=== PATIENT | female | born 1945 | race Caucasian/White ===

== ENCOUNTER → 2016-07-20 | Outpatient (CLI) | payer BC ==
[~2016-07-20] MED LIST: AZEL0.15 NAE; CHOLCAP5 PO; FLUT0.15 NAE; IBUP1TAB PO; LEVO-14 PO; LORA-741 PO; SIMV40TA4 PO; SNG10 PO
[2016-07-20 15:12] LABS: BASO % 0.4 %; BASO ABS # 0.02 K/uL (0-0.2); COMPLETE YES; EOS % 0.8 %; HEMATOCRIT 41.7 % (37-47); IG% 0.2 %; LYMPH % 40.4 %; LYMPH ABS # 2.11 K/uL (1.2-3.4); MEAN CELL VOLUME 93.5 fL (80-100); MEAN CORPUSCULAR HEMOGLOBIN 31.4 pg (25-34); MEAN CORPUSCULAR HGB CONC 33.6 g/dl (32-36); MEAN PLATELET VOLUME 9.9 fL (7.4-10.4); MONO % 6.1 %; NEUT % 52.1 %; PLATELET COUNT 287 K/uL (130-400); RED BLOOD COUNT 4.46 M/uL (4.2-5.4); WHITE BLOOD COUNT 5.22 K/uL (4.8-10.8)
[2016-07-20 15:20] LABS: PROTHROMBIN TIME (PATIENT) 10.3 SECONDS (9.0-12.0)
== END | disposition home or self-care (01) ==
LOC: C.CPL 14:41
DX: Z87.891 Personal history of nicotine dependence (principal); Z01.818 Encounter for other preprocedural examination

== ENCOUNTER → 2016-07-24 | Day surgery (SDC) | payer BC ==
[2016-07-22 08:07] VITALS: Ht 167.6 cm; Wt 74.5 kg
[~2016-07-24] VITALS: Ht 167.6 cm; Wt 74.5 kg
[~2016-07-24] MED LIST changes: +ATROPINE SULFATE 0.1 MG/ML 5ML SYR IV PRN; +DEXAMETHASONE SOD INJ 4 MG/ML VIAL ONE; +EpHEDrine SULFATE INJ 50 MG/ML AMP IV PRN; +EpINEphrine INJ 1MG/ML AMP 1 MG/ML AMP ONE; +FENTANYL CITRATE INJ 50 MCG/1 ML 2 ML VIAL IV PRN; +FENTANYL CITRATE INJ 50 MCG/1 ML 2 ML VIAL ONE; +LACTATED RINGER'S 1000ML 1,000 ML IV SCH; +LIDOCAINE HCL 2% 2 ML VIAL (20MG/ML) ONE; +MIDAZOLAM HCL 1 MG/ML 2ML VIAL ONE; +ONDANSETRON INJ 2 MG/ML 2 ML VIAL IV PRN; +ONDANSETRON INJ 2 MG/ML 2 ML VIAL ONE; +OXYCODONE HCL 10 MG/0.5 ML UDP PO PRN; +PROPOFOL IV EMULSION 10 MG/ML 20 ML VIAL IV ONE; +SUCCINYLCHOLINE 100MG/5ML SYR IV ONE
--- NOTE | 2016-07-24 09:56 | History & Physical Bridge - [place] ---
H&P Re-Evaluation Bridge Note: I have examined the patient, reviewed the History & Physical and in the interval since the performance of the History & Physical I have noted the following changes of clinical significance: No changes noted
--- NOTE | 2016-07-24 10:43 | [facility] Operative Report ---
Operative Report Operative Date Jul 24, 2016. 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 Cain Venetian Blind Installer Surgeon(s) None Estimated Blood Loss 10 mL Findings 1. PROMINENT BASE OF TONGUE LYMPHOID TISSUE AND PROMINENT MUCOSA OF THE RIGHT PYRIFORM SINUS Specimens A: Right pyriform sinus mucosa B: Right base of tongue I attest to the content of the Intraoperative Record and any orders documented therein. Any exceptions are noted below.
--- NOTE | 2016-07-24 10:45 | Discharge Instructions ---
Discharge Instructions Admission Reason for Admission: Neoplasm Of Uncertain Behavior Base Of Tongue, Drew Discharge Discharge Diagnosis / Problem: SAME Discharge Goals Goal(s): Improve function, Diagnostic testing Activity Recommendations Activity Limitations: as noted below NO DRIVING WHILE ON OXYCODONE . Current Hospital Diet Patient's current hospital diet: Discharge Diet Recommended Diet: Regular Diet Procedures Procedures Performed: Direct Laryngoscopy With Biopsies Pending Studies Studies pending at discharge: no Medical Emergencies . Who to Call and When: Medical Emergencies: If at any time you feel your situation is an emergency, please call 911 immediately. . Non-Emergent Contact Non-Emergency issues call your: Surgeon . . "Provider Documentation" section prepared by Edin Cain. VTE Core Measure Inpt VTE Proph given/why not?: SCD's
[2016-07-24 11:33] VITALS: TEMP 36.5
--- NOTE | 2016-07-24 11:59 | OPERATIVE REPORT ---
DATE OF OPERATION: 07/24/2016 PREOPERATIVE DIAGNOSIS: 1. Right true vocal fold paralysis. 2. Prominence of the right base of tongue and piriform sinus. 3. Direct laryngoscopy with biopsy. POSTOPERATIVE DIAGNOSIS: 1. Right true vocal fold paralysis. 2. Prominence of the right base of tongue and piriform sinus. 3. Direct laryngoscopy with biopsy. PROCEDURE: Direct laryngoscopy with biopsies SURGEON: Dr. Cain. ANESTHESIA: General endotracheal. ESTIMATED BLOOD LOSS: 10 mL. FINDINGS: 1. Prominent lymphoid tissue involving the right base of tongue. 2. Prominent mucosa involving the right pyriform sinus and the medial wall. SPECIMENS: Right base of tongue and right pyriform sinus mucosa for permanent pathological assessment. COMPLICATIONS: None. INDICATIONS FOR THE PROCEDURE: The patient is a 71-year-old female with a history of right vocal cord paralysis who had a CT scan of the neck in [address] Jorge De La Torre. This revealed some prominence of the right base of tongue, but a direct laryngoscopy was not performed because her indirect laryngoscopy in the office was somewhat unrevealing. On my laryngoscopy there was prominence of the right base of tongue and to be thorough I ordered an MRI of the neck with and without contrast to further look at the base of the tongue. This showed prominence of the right base of tongue as well as the pyriform sinus and due to her right vocal cord paralysis and the chance that there is an indolent malignancy I recommended direct laryngoscopy with biopsies. She presents the above-mentioned procedure on an outpatient elective basis. OPERATION AND FINDINGS: DETAILS OF PROCEDURE: After informed consent had been obtained from the patient, the patient was wheeled to the operating room and placed on the operating table in supine position. Monitors were placed after induction of general endotracheal anesthesia. The table was turned 90 degrees and the patient was placed in sniffing position. A tooth guard was placed over the maxillary dentition. The operating laryngoscope was carefully inserted and used to inspect the oral cavity, oropharynx, hypopharynx, and larynx. Intraoperative findings were prominent tissue involving the right base of tongue as well as the medial wall and the piriform sinus. Cup forceps were used to take biopsies of the right pyriform sinus mucosa as well as a right base of tongue tissue. These were sent off for permanent pathological assessment. Topical 1:1000 epinephrine pledgets were placed over the biopsy sites for hemostatic effect. After 1 minute these were removed. The oropharynx and oral cavity were then suctioned. The operating microscope was then removed as well as the maxillary tooth guard. An orogastric tube was placed and the stomach was suctioned free of air and stomach contents. This marked the end of the case. The patient tolerated the procedure well and there were no apparent complications. The patient was extubated and transferred to recovery room in stable condition. I attest to the content of the Intraoperative Record and any orders documented therein. Any exceptions are noted below. MTDD
[2016-07-24 12:02] VITALS: BP 143/87; PULSE 67; O2SAT 95
--- NOTE | 2016-07-24 12:41 | Anesthesia Progress Nt - [facility] ---
Anesthesia Post Op Note Date & Time Jul 24, 2016 at 12:41 Vital Signs Pain Intensity: 0 Vital Signs Past 12 Hours Date Time Temp Pulse Resp B/P Pulse Ox O2 Delivery O2 Flow Rate FiO2 07/24/16 12:02 67 16 143/87 95 Room Air 07/24/16 11:33 36.5 64 16 153/80 95 Room Air 07/24/16 11:29 137/80 07/24/16 11:27 65 13 07/24/16 11:27 66 13 95 07/24/16 11:23 149/77 07/24/16 11:22 70 15 96 07/24/16 11:22 69 15 07/24/16 11:21 66 10 96 07/24/16 11:21 66 10 07/24/16 11:20 36.9 95 Room Air 07/24/16 11:18 144/72 07/24/16 11:16 70 15 96 07/24/16 11:16 70 15 07/24/16 11:14 142/95 07/24/16 11:11 71 14 07/24/16 11:11 71 14 94 07/24/16 11:10 71 16 07/24/16 11:10 70 16 95 07/24/16 11:08 143/73 07/24/16 11:05 70 18 07/24/16 11:05 70 18 100 07/24/16 11:03 144/81 07/24/16 11:00 71 19 07/24/16 11:00 70 19 99 07/24/16 10:58 143/87 07/24/16 10:56 36.8 74 16 144/90 99 Humidified Oxygen 6 Mask 07/24/16 10:55 74 10 100 07/24/16 10:55 76 10 07/24/16 09:05 37.0 70 20 156/91 96 Room Air Notes Mental Status: alert / awake / arousable, participated in evaluation Pt Amnestic to Procedure: Yes Nausea / Vomiting: adequately controlled Pain: adequately controlled Airway Patency, RR, SpO2: stable & adequate BP & HR: stable & adequate Hydration State: stable & adequate Anesthetic Complications: no major complications apparent
== END | disposition home or self-care (01) ==
LOC: X.SURG 08:55
DX: J38.00 Paralysis of vocal cords and larynx, unspecified (principal); K14.8 Other diseases of tongue; J34.89 Other specified disorders of nose and nasal sinuses; F41.9 Anxiety disorder, unspecified; J32.9 Chronic sinusitis, unspecified; K57.30 Diverticulosis of large intestine without perforation or abscess without bleeding; E78.5 Hyperlipidemia, unspecified; J38.7 Other diseases of larynx; M85.80 Other specified disorders of bone density and structure, unspecified site; Z98.890 Other specified postprocedural states; J38.01 Paralysis of vocal cords and larynx, unilateral

== ENCOUNTER → 2016-08-17 | Outpatient (CLI) | payer BC ==
[~2016-08-17] MED LIST changes: -ATROPINE SULFATE 0.1 MG/ML 5ML SYR IV PRN; -DEXAMETHASONE SOD INJ 4 MG/ML VIAL ONE; -EpHEDrine SULFATE INJ 50 MG/ML AMP IV PRN; -EpINEphrine INJ 1MG/ML AMP 1 MG/ML AMP ONE; -FENTANYL CITRATE INJ 50 MCG/1 ML 2 ML VIAL IV PRN; -FENTANYL CITRATE INJ 50 MCG/1 ML 2 ML VIAL ONE; -IBUP1TAB PO; -LACTATED RINGER'S 1000ML 1,000 ML IV SCH; -LIDOCAINE HCL 2% 2 ML VIAL (20MG/ML) ONE; -MIDAZOLAM HCL 1 MG/ML 2ML VIAL ONE; -ONDANSETRON INJ 2 MG/ML 2 ML VIAL IV PRN; -ONDANSETRON INJ 2 MG/ML 2 ML VIAL ONE; -OXYCODONE HCL 10 MG/0.5 ML UDP PO PRN; -PROPOFOL IV EMULSION 10 MG/ML 20 ML VIAL IV ONE; -SUCCINYLCHOLINE 100MG/5ML SYR IV ONE
== END | disposition home or self-care (01) ==
LOC: C.MAMM 10:18
PROVIDERS: ATTEND Family Medicine
DX: M81.0 Age-related osteoporosis without current pathological fracture (principal)

== ENCOUNTER → 2016-08-27 | Outpatient (CLI) | payer BC ==
[~2016-08-27] MED LIST changes: +GADAVIST IV PRN
--- NOTE | 2016-08-27 10:36 | DIAGNOSTIC IMAGING REPORT ---
CERVICAL SPINE MRI WITH AND WITHOUT CONTRAST HISTORY: ABNORMAL Mri, syringomyelia TECHNIQUE: Multiplanar multisequence MRI of the cervical spine was performed both before and after the use of intravenous contrast. COMPARISON STUDY: Neck MRI 06/26/2016. FINDINGS: There is again noted syringohydromyelia throughout the cervical spine. This also extends into the visualized thoracic spine. This measures up to 6 x 4 mm at the C4-T1 levels. No abnormal enhancement. There are no intrinsic cord lesions identified. Asymmetry/flattening of the right vocal cord suggestive of paralysis. Alignment and curvature is cervical spine is intact. Prevertebral soft tissues are within normal limits. The cerebellar tonsils are positioned 2 mm below the level the foramen magnum. However, there is no mass effect along the brainstem. Mild disc space narrowing at C4-C5. Moderate disc space narrowing at C5-C6 and C6-C7. C2-C3: No significant central canal or neural foraminal narrowing. C3-C4: No significant central canal or neural foraminal narrowing. C4-C5: Small broad-based posterior disc osteophyte complex which abuts but does not deform the anterior cord. There is mild left-sided neural foraminal narrowing. C5-C6: Small broad-based posterior disc osteophyte complex which results in partial effacement of the anterior thecal sac without cord deformity. There is mild right and moderate left neural foraminal narrowing. C6-C7: Small broad-based posterior disc osteophyte complex without significant central canal or neural foraminal narrowing. C7-T1: No significant central canal or neural foraminal narrowing. IMPRESSION: 1. 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 No intrinsic cord lesions identified. 2. Degenerative changes as described above. 3. Mild cerebellar tonsillar to be a without evidence for a Chiari malformation. There is no mass effect along the brainstem . 4. Asymmetry/flattening of the right vocal cord suggestive of paralysis. Direct visualization is recommended for confirmation. Electronically signed by: Octavio Villasenor M.D. 08/27/2016 10:35 AM Dictated Date/Time: 08/27/2016 10:25 AM
--- NOTE | 2016-08-27 10:51 | DIAGNOSTIC IMAGING REPORT ---
MRI THORACIC SPINE COMBO CLINICAL HISTORY: Syringomyelia. COMPARISON STUDY: Chest CT dated 08/15/2015. TECHNIQUE: MRI of the thoracic spine is performed utilizing various T1 and T2-weighted sequences in the axial and sagittal planes. Contrast-enhanced sequences are acquired following the IV administration of 7 cc of Gadavist. The examination is degraded by motion artifact. FINDINGS: Vertebral body height and alignment are maintained throughout the thoracic spine. Marrow signal intensity is slightly heterogeneous. No destructive bony lesion is seen. Mild hyperkyphosis is observed. There is mild degenerative disc desiccation and loss of height seen throughout the thoracic spine. There is no large disc herniation or acquired compromise of the central canal. Minimal disc bulge is noted at T9-T10. No significant neural foraminal stenosis is identified throughout the thoracic region. The spinous processes appear intact. There is mild diffuse thinning of the thoracic spinal cord. There is syringomyelia seen extending the length of the cord. This measures up to 3 mm in diameter and extends inferiorly to the level of T10-T11. No mass or abnormal enhancement is seen on the postcontrast images. The conus medullaris terminates at the level of L1. The paraspinous soft tissues are normal as visualized. The lungs are grossly clear but not well evaluated by MRI. Renal cysts are partially imaged. IMPRESSION: 1. Findings are consistent with diffuse atrophy of the thoracic spinal cord with syringomyelia which extends from the cervical region to the T10-T11 interspace. 2. There is no evidence of spinal cord mass or abnormal enhancement on the postcontrast images. 3. Minimal degenerative change as above. There is no acquired compromise of the central canal. Dictated: 08/27/2016 9:54 AM Transcribed: 08/27/2016 10:50 AM [facility] Electronically signed by: Jesus Rodriguez M.D. 08/27/2016 11:02 AM Dictated Date/Time: 08/27/2016 9:54 AM
== END | disposition home or self-care (01) ==
LOC: C.MRIBC 07:45
PROVIDERS: ATTEND Psychiatry & Neurology Neurology
DX: G95.0 Syringomyelia and syringobulbia (principal); R93.8 Abnormal findings on diagnostic imaging of other specified body structures

== ENCOUNTER → 2016-11-06 | Outpatient (CLI) | payer BC ==
[~2016-11-06] MED LIST changes: -GADAVIST IV PRN
--- NOTE | 2016-11-09 12:26 | MAMMOGRAPHY REPORT ---
BILATERAL DIGITAL SCREENING MAMMOGRAM WITH CAD: 11/06/2016 CLINICAL HISTORY: Routine screening. Patient has no complaints. TECHNIQUE: Current study was also evaluated with a Computer Aided Detection (CAD) system. Bilatera l CC and MLO views were obtained. COMPARISON: Comparison is made to exams dated: 11/04/2015 mammogram, 11/01/2014 mammogram, 10/31/2013 mammogram, 10/27/2012 mammogram, 10/27/2011 mammogram, and 10/21/2010 mammogram - [facility]. BREAST COMPOSITION: The tissue of both breasts is heterogeneously dense, which may obscure small ma sses. FINDINGS: No suspicious masses, calcifications, or areas of architectural distortion are noted in e ither breast. There has been no significant interval change compared to prior exams. Scattered bilat eral benign-appearing calcifications are not significantly changed. A linear scar marker denotes a scar on the left upper outer breast. IMPRESSION: ACR BI-RADS CATEGORY 2: BENIGN There is no mammographic evidence of malignancy. A 1 year screening mammogram is recommended. The p atient will receive written notification of the results. Approximately 10% of breast cancers are not detected with mammography. A negative mammographic repor t should not delay biopsy if a clinically suggestive mass is present. Elaine Barr M.D. ah/:11/06/2016 16:06:13 Test Driver: Charlene Ocasio, [facility] letter sent: Normal 1/2 BI-RADS Code: ACR BI-RADS Category 2: Benign
== END | disposition home or self-care (01) ==
LOC: C.MAMM 12:52
PROVIDERS: ATTEND Obstetrics & Gynecology
DX: Z12.31 Encounter for screening mammogram for malignant neoplasm of breast (principal)

== ENCOUNTER → 2017-11-08 | Outpatient (CLI) | payer BC ==
--- NOTE | 2017-11-09 12:47 | MAMMOGRAPHY REPORT ---
BILATERAL DIGITAL SCREENING MAMMOGRAM TOMOSYNTHESIS WITH CAD: 11/08/2017 CLINICAL HISTORY: Routine screening. Patient has no complaints. TECHNIQUE: Breast tomosynthesis in addition to standard 2D mammography was performed. Current study was also evaluated with a Computer Aided Detection (CAD) system. COMPARISON: Comparison is made to exams dated: 11/06/2016 mammogram, 11/04/2015 mammogram, 11/01/2014 m ammogram, 10/31/2013 mammogram, 10/27/2012 mammogram, and 10/27/2011 mammogram - [facility] enter. BREAST COMPOSITION: The tissue of both breasts is heterogeneously dense, which may obscure small mas ses. FINDINGS: No suspicious mass, architectural distortion or cluster of microcalcifications is seen. T here are a few benign coarse calcifications and minimal vascular calcifications in the breasts. IMPRESSION: ACR BI-RADS CATEGORY 1: NEGATIVE There is no mammographic evidence of malignancy. A 1 year screening mammogram is recommended. The pa tient will receive written notification of the results. Approximately 10% of breast cancers are not detected with mammography. A negative mammographic report should not delay biopsy if a clinically suggestive mass is present. Urszula Pratt M.D. ay/:11/08/2017 16:55:18 Motor Vehicle Salesperson: Shahrzad CARRASCO(R)(M), [facility] letter sent: Normal 1/2 BI-RADS Code: ACR BI-RADS Category 1: Negative
== END | disposition home or self-care (01) ==
LOC: C.MAMM 13:24
PROVIDERS: ATTEND Obstetrics & Gynecology
DX: Z12.31 Encounter for screening mammogram for malignant neoplasm of breast (principal)

== ENCOUNTER 2023-12-20 16:47 | Inpatient (IN) ==
--- NOTE | 2023-12-20 16:57 | ED Triage Note ---
Date of Service December 20, 2023 Provider in Triage Author: Alvaro Richmond History of Present Illness This patient was briefly evaluated while in triage. An abbreviated physical exam was performed. This patient is a 78-year-old Female who presents to the ED for evaluation of possible constipation. Patient reports that she has not had a bowel movement in the past 6 days. Patient also has bloating and burning sensation in the lower abdomen, back and sides. The patient was seen at [facility], and was referred to the emergency department for further evaluation. Patient does report a prior history of constipation, but denies any history of bowel obstruction. Last colonoscopy was last March with a polyp removal that was benign. The patient is scheduled for another colonoscopy in 2 years. Physical Exam CONSTITUTIONAL: Healthy and well nourished. Patient appears in mild discomfort. RESPIRATORY: Clear to auscultation bilaterally with no wheezing, crackles, rhonchi or stridor. CARDIOVASCULAR: Regular rate and rhythm with no murmurs, rubs or gallops. GASTROINTESTINAL: Bowel sounds present in all quadrants. Patient is generally tender to palpation throughout the entire abdomen. INTEGUMENTARY: No rash or other significant dermatologic conditions noted. HEMATOLOGIC: No ecchymosis or petechiae. PSYCHIATRIC: Positive affect. NEUROLOGIC: No focal neurologic deficits noted. Initial orders for labs and / or imaging were placed and patient was placed in the waiting area until a bed is available. Please see further documentation for the full ED course.
[2023-12-20] MEDS: SODIUM CHLORIDE 0.9% 500 ML IV ONE (17:10)
[2023-12-20 17:36] LABS: Basophils # (auto) 0.03 K/uL (0.00-0.20); Basophils % (auto) 0.3 %; Eosinophils # (auto) 0.01 K/uL (0.00-0.50); Eosinophils % (auto) 0.1 %; Hematocrit (blood only) 36.5 % (37.0-47.0); Hemoglobin 12.2 g/dl (12.0-16.0); Immature Granulocytes # (auto) 0.04 K/uL (0.01-0.20); Immature Granulocytes % (auto) 0.3 %; Lymphocytes # (auto) 1.56 K/uL (1.20-3.40); Lymphocytes % (auto) 13.3 %; Mean Corpuscular Hemoglobin 30.3 pg (25.0-34.0); Mean Corpuscular Hgb Conc 33.4 g/dL (32.0-36.0); Mean Corpuscular Volume 90.6 fL (80.0-100.0); Mean Platelet Volume 9.5 fL (9.4-12.4); Monocytes # (auto) 0.78 K/uL (0.11-0.59); Monocytes % (auto) 6.6 %; Neutrophils # (auto) 9.32 K/uL (1.40-6.50); Neutrophils % (auto) 79.4 %; Platelet Count 360 K/uL (130-400); RDW Coefficient of Variation 13.7 % (11.5-14.5); RDW Standard Deviation 45.1 fL (36.4-46.3); Red Blood Count 4.03 M/uL (4.20-5.40); White Blood Count 11.74 K/ul (4.8-10.8)
[2023-12-20 17:54] LABS: Albumin Globulin Ratio 0.9 (0.9-2); Albumin Level 3.6 gm/dl (3.4-5.0); BUN Creatinine Ratio 13.6 (10-20); Bilirubin,Total 0.7 mg/dl (0.2-1.0); Calcium 8.9 mg/dl (8.6-10.3); Creatinine Clr Calc Pharmacy 55.8 ml/min; Est GFR (African American) 72.9 ml/min; Est GFR (Non-African American) 62.9 ml/min; Globulin 3.9 gm/dl (2.5-4.0); Potassium 3.3 mmol/L (3.5-5.1); Total Protein 7.5 gm/dl (6.0-8.3)
--- NOTE | 2023-12-20 18:47 | Emergency Department Note ---
History of Present Illness General Chief complaint: Constipation Stated complaint: CONSTIPATION Time Seen by Provider: 12/20/23 18:25 Source: patient, RN notes reviewed and old records reviewed (11/10/2018-continuity care document with her medical problems on it) Mode of arrival: ambulatory Limitations: no limitations History of Present Illness This patient comes in after being sent over from [facility]. She has had constipation about a week she says she had no real bowel movement for about a week she had normal bowel movement last Wednesday she is using Dulcolax from above as well as fruit she had nothing from below such as enemas. No vomiting or emesis. She describes her abdomen is feeling of burning gas at times with bloating in the lower abdomen does radiate towards the back but no significant back pain no numbness weakness in the buttocks or legs. Normal bladder function no fall or trauma or injury Home Medications Medication Instructions Recorded Confirmed Type azelastine 205.5 mcg (0.15 %) 1 sprays intranasal DAILY 05/28/19 06/16/19 History nasal spray fluticasone propionate 50 1 sprays intranasal DAILY 05/28/19 06/16/19 History mcg/actuation nasal spray,suspension levocetirizine 5 mg tablet 5 mg PO DAILY 05/28/19 06/16/19 History lorazepam 0.5 mg tablet 0.5 mg PO DAILY PRN 05/28/19 06/16/19 History montelukast 10 mg tablet 10 mg PO QPM 05/28/19 06/16/19 History polyethylene glycol 3350 17 g PO 05/28/19 06/16/19 History gram/dose oral powder simvastatin 40 mg tablet 40 mg PO DAILY 05/28/19 06/16/19 History Lactobacillus no.33-Bifidobac. cap PO 06/16/19 06/16/19 History lactis, longum 3.4 billion cell capsule (Jarro-Dophilus) acetaminophen 500 mg capsule 500 mg PO Q6H PRN 06/16/19 06/16/19 History cholecalciferol (vitamin D3) 125 5,000 units PO DAILY 06/16/19 06/16/19 History mcg (5,000 unit) capsule escitalopram oxalate 20 mg tablet 20 mg PO DAILY 06/16/19 06/16/19 History omeprazole 20 mg capsule,delayed 20 mg PO DAILY 06/16/19 06/16/19 History release sodium chloride 0.65 % nasal spray 1 sprays intranasal BID PRN 06/16/19 06/16/19 History aerosol (Saline Mist) Allergies Allergy/AdvReac Type Severity Reaction Status Date / Time No Known Drug Allergies Allergy Verified 05/28/19 11:35 Past Med/Surg History Problem List Acute diverticulitis Allergic rhinitis due to dust (Acute) Allergic rhinitis due to pollen (Acute) Anxiety disorder (Acute) Chronic rhinitis (Acute) Chronic sinusitis (Acute) Diverticulosis of colon (Acute) Erosive osteoarthritis of hands, bilateral (Acute) Hyperlipidemia (Acute) Laryngopharyngeal reflux (Acute) 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) Osteopenia (Acute) Panic disorder without agoraphobia (Acute) Syringomyelia (Acute) Vocal cord paralysis (Acute) Vocal cord paresis (Acute) Surgical History Hx of cataract surgery Family History Other Colonic polyp Coronary heart disease Hypertension Myocardial infarction Seizure Social History Smoking Status: Former smoker Do You Dip or Chew Tobacco: No; Hx Alcohol Use: Yes Preferred Language: Albanian marital status: Single Current Living Situation: Alone current occupational status: retired Feels Safe at Home: Yes Review of Systems A total of 10 systems reviewed and were otherwise negative Physical Exam Vital Signs Vital Signs - 24 hr 12/20/23 16:48 12/20/23 19:43 12/20/23 22:23 Temperature 36.6 C Temperature Source Temporal Artery Scan Pulse Rate 102 H Pulse Rate [Finger] 81 75 Respiratory Rate 18 18 16 Respiratory Effort / Characteristics Non-Labored Spontaneous Non-Labored Spontaneous Respiratory Depth Normal Normal Respiratory Pattern Regular Regular Blood Pressure 119/65 Blood Pressure [Right Arm] 104/60 139/62 Blood Pressure Mean 83 Blood Pressure Mean [Right Arm] 74 87 Blood Pressure Position [Right Arm] Semi-fowlers Semi-fowlers Pulse Oximetry 96 97 98 Oxygen Delivery Method Room Air Room Air Sepsis Recent Fever Within 48 Hours No Sepsis New/Unexplained Change in Mental Status N/A Sepsis Action Taken by Nursing No Action Required General: Well developed well nourished older female who appears in no acute distress, breathing comfortably on room air. Normal speech HEENT: Normal cephalic atraumatic. Pupils are equal round and reactive to light. Extraocular movements are intact. Oropharynx is pink with moist mucous membranes. No swelling of the mouth lips or tongue. Neck: Supple with a midline trachea. No meningeal signs or stiffness, no JVD or bruits. No Stridor. Chest: Clear to auscultation bilaterally. No wheezes or rhonchi. No increased work of breathing. Heart: Regular rate and rhythm without murmurs or gallops. Abdomen: Soft nontender,, mildly distended without rebound guarding or rigidity. Extremities: No cyanosis clubbing or edema. No calf tenderness or assymetry Spine/Back. Non tender to palpation. No CVA tenderness Skin: Good turgor without rashes. Neurologic exam: Cranial nerves two through 12 are intact. Motor and sensation are intact and symmetrical throughout. Course Administered Medications Sodium Chloride (Nss) 1,000 mls @ 999 mls/hr IV .Q1H1M ONE Stop: 12/20/23 23:43 Last Admin: 12/20/23 23:18 Dose: 999 mls/hr Documented By: ZANA Discontinued Medications Sodium Chloride (Nss) 500 mls @ 999 mls/hr IV .Q31M ONE Stop: 12/20/23 17:27 Last Infusion: 12/20/23 19:29 Dose: Infused Documented By: Admin: 12/20/23 17:10 Dose: 999 mls/hr Documented By: YE Piperacillin Sod/Tazobactam (Sod 4.5 gm/ Dextrose) 100 mls @ 200 mls/hr IV NOW ONE; Protocol Stop: 12/20/23 23:10 Last Admin: 12/20/23 23:20 Dose: 200 mls/hr Documented By: ZANA Ioversol (Optiray 320 100ml) 93 ml IV ONCE ONE Stop: 12/20/23 19:31 Last Admin: 12/20/23 19:31 Dose: 93 ml Documented By: GEDipesh Medical Decision Making Differential Diagnosis Bowel obstruction, constipation, intra-abdominal process, infection, colitis, UTI Medical Records Attestation: I reviewed the patient's medical records. Home Medications Current Medication List: was personally reviewed by me Laboratory Data Attestation: I reviewed the patient's lab results. 12/20/23 17:12 12/20/23 17:12 Lab Results 12/20/23 12/20/23 12/20/23 Range/Units 17:12 19:50 23:15 WBC 11.74 H (4.8-10.8) K/ul RBC 4.03 L (4.20-5.40) M/uL Hgb 12.2 (12.0-16.0) g/dl Hct 36.5 L (37.0-47.0) % MCV 90.6 (80.0-100.0) fL MCH 30.3 (25.0-34.0) pg MCHC 33.4 (32.0-36.0) g/dL RDW Std Deviation 45.1 (36.4-46.3) fL RDW Coeff of [place] 13.7 (11.5-14.5) % Plt Count 360 (130-400) K/uL MPV 9.5 (9.4-12.4) fL Immature Gran % (Auto) 0.3 % Neut % (Auto) 79.4 % Lymph % (Auto) 13.3 % Luna % (Auto) 6.6 % Eos % (Auto) 0.1 % Baso % (Auto) 0.3 % Neut # (Auto) 9.32 H (1.40-6.50) K/uL Lymph # (Auto) 1.56 (1.20-3.40) K/uL Luna # (Auto) 0.78 H (0.11-0.59) K/uL Eos # (Auto) 0.01 (0.00-0.50) K/uL Baso # (Auto) 0.03 (0.00-0.20) K/uL Immature Gran # (Auto) 0.04 (0.01-0.20) K/uL Sodium 134 L (136-145) mmol/L Potassium 3.3 L (3.5-5.1) mmol/L Chloride 100 (98-107) mmol/L Carbon Dioxide 23 (21-32) mmol/L Anion Gap 11 (3-11) BUN 12 (6-23) mg/dl Creatinine 0.88 (0.6-1.2) mg/dl Est Cr Clr Drug Dosing 55.8 ml/min Est GFR ( Amer) 72.9 ml/min Est GFR (Non-Af Amer) 62.9 ml/min BUN/Creatinine Ratio 13.6 (10-20) Glucose 109 H (70-99(Fasting)) mg/dl Lactate 0.8 (0.4-2.0) mmol/L Calcium 8.9 (8.6-10.3) mg/dl Total Bilirubin 0.7 (0.2-1.0) mg/dl AST 22 (13-39) U/L ALT 12 (7-52) U/L Alkaline Phosphatase 85 (34-104) U/L Total Protein 7.5 (6.0-8.3) gm/dl Albumin 3.6 (3.4-5.0) gm/dl Globulin 3.9 (2.5-4.0) gm/dl Albumin/Globulin Ratio 0.9 (0.9-2) Lipase 10 L (11-82) U/L Urine Color Dark Yellow Urine Appearance Clear (Clear) Urine pH 6.0 (4.5-7.5) Ur Specific [place] > 1.045 H (1.000-1.030) Urine Protein 1+ H (Negative) Urine Glucose (UA) Negative (Negative) Urine Ketones 1+ H (Negative) Urine Blood Trace H (Negative) Urine Nitrite Negative (Negative) Urine Bilirubin 1+ H (Negative) Urine Urobilinogen Positive H (Negative) Ur Leukocyte Esterase Trace H (Negative) Urine WBC (Auto) 0-5 (0-5) /hpf Urine RBC (Auto) 3-5 H (0-2) /hpf U Hyaline Cast (Auto) 6-10 H (0-2) /lpf U Epithel Cells (Auto) 6-10 H (0-2) /hpf Urine Bacteria (Auto) None Seen (None Seen) Imaging Data Attestation: I personally reviewed and interpreted this imaging study as follows: My Impression: CAT scan of the abdomen and pelvis -no bowel obstruction or free air. There is diverticulitis with an abscess Radiologist's Impression: Abdomen/Pelvis CT 12/20/23 16:58 Exam(s): CT ABDOMEN + PELVIS With Contrast IV Amt: 93 cc opti 320 EXAM: CT Abdomen and Pelvis With Intravenous Contrast CLINICAL HISTORY: Reason for exam: Abd pain. TECHNIQUE: Axial computed tomography images of the abdomen and pelvis with intravenous contrast. CTDI is 26.11 mGy and DLP is 1221.89 mGy-cm. Automated exposure control was utilized for the study. A dose lowering technique was utilized adhering to the principles of ALARA. CONTRAST: Patient received 93 cc opti 320 of IV contrast COMPARISON: No relevant prior studies available. FINDINGS: ABDOMEN: Liver: Unremarkable. Gallbladder and bile ducts: Unremarkable. Pancreas: Unremarkable. Spleen: Unremarkable. Adrenals: Unremarkable. Kidneys and ureters: Cortical cysts on the left kidney measuring 8.4 cm. Right kidney is unremarkable. Stomach and bowel: Acute diverticulitis of the sigmoid colon. There is an abscess along the inferior aspect of the sigmoid colon measuring 4. 0 x 3.0 x 3.5 cm. No pneumoperitoneum. PELVIS: Appendix: No findings to suggest acute appendicitis. Bladder: Unremarkable. Reproductive: Unremarkable as visualized. ABDOMEN and PELVIS: Intraperitoneal space: Unremarkable. No free air. No significant fluid collection. Bones/joints: No acute fracture. Soft tissues: Fat-containing left inguinal hernia. Vasculature: Unremarkable. Lymph nodes: Unremarkable. IMPRESSION: Acute diverticulitis of the sigmoid colon. There is an abscess along the inferior aspect of the sigmoid colon measuring 4.0 x 3.0 x 3.5 cm. No pneumoperitoneum. Electronically signed by: Swapnil Rangel MD 12/20/23 22:35 PM MDM Narrative This patient comes in as described above. I did see her out in triage to help expedite her care. She was ultimately moved to room 89. She has had abdominal pain and bloating and constipation. She has no neurologic deficits to suggest cauda equina syndrome her labs are reassuring her white count is only mildly elevated she has no significant anemia. She has normal renal function. She did have a CAT scan which does show diverticulitis with abscess. I did order blood cultures as well as lactic acid lactic acid was normal. Her abdomen is benign renal reassessed her. She looks well she was given Zosyn 4.5 g IV. I did discuss the case with Dr. Manuel as well as Dr. Early in consultation Dr. Manuel feels that the patient can stay here. She may ultimately need IR drainage if she does not get better but for tonight she can stay here for IV antibiotics and further evaluation. Impression & Plan Diverticulitis, Abdominal pain, Constipation, Colonic diverticular abscess Discharge Plan Visit Data Chief Complaint: Constipation Stated Complaint: CONSTIPATION ED Provider: Terry Valdez Discharge Problem: Diverticulitis, Abdominal pain, Constipation, Colonic diverticular abscess Forms Stand Alone Forms: My [facility] Prescriptions Prescriptions: No Action levocetirizine 5 mg tablet 5 mg PO DAILY fluticasone propionate 50 mcg/actuation spray,suspension 1 sprays INTNAS DAILY montelukast 10 mg tablet 10 mg PO QPM azelastine 0.15 % (205.5 mcg) spray,non-aerosol 1 sprays INTNAS DAILY lorazepam 0.5 mg tablet 0.5 mg PO DAILY PRN polyethylene glycol 3350 17 gram/dose powder PO simvastatin 40 mg tablet 40 mg PO DAILY escitalopram oxalate 20 mg tablet 20 mg PO DAILY omeprazole 20 mg capsule,delayed release(DR/EC) 20 mg PO DAILY cholecalciferol (vitamin D3) 5,000 unit capsule 5,000 units PO DAILY Jarro-Dophilus 3.4 billion cell capsule PO acetaminophen 500 mg capsule 500 mg PO Q6H PRN sodium chloride [Saline Mist] 0.65 % aerosol,spray 1 sprays INTNAS BID PRN Referrals Referrals: Deepak Paulino DO [Primary Care Provider] -
[2023-12-20] MEDS: OPTIRAY 320 100ml IV ONE (19:31)
[2023-12-20 20:16] LABS: Appearance Urine Clear (Clear); Bacteria Urine Automated None Seen (None Seen); Bilirubin Urine 1+ (Negative); Blood Urine Trace (Negative); Color Urine Dark Yellow; Glucose Urine UA Negative (Negative); Ketones Urine 1+ (Negative); Leukocyte Esterase Urine Trace (Negative); Nitrite Urine Negative (Negative); Protein Urine 1+ (Negative); Specific Gravity Urine > 1.045 (1.000-1.030); Urobilinogen Urine Positive (Negative); WBC Urine Automated 0-5 /hpf (0-5)
--- NOTE | 2023-12-20 22:36 | CT Scan Report ---
Exam(s): CT ABDOMEN + PELVIS With Contrast IV Amt: 93 cc opti 320 EXAM: CT Abdomen and Pelvis With Intravenous Contrast CLINICAL HISTORY: Reason for exam: Abd pain. TECHNIQUE: Axial computed tomography images of the abdomen and pelvis with intravenous contrast. CTDI is 26.11 mGy and DLP is 1221.89 mGy-cm. Automated exposure control was utilized for the study. A dose lowering technique was utilized adhering to the principles of ALARA. CONTRAST: Patient received 93 cc opti 320 of IV contrast COMPARISON: No relevant prior studies available. FINDINGS: ABDOMEN: Liver: Unremarkable. Gallbladder and bile ducts: Unremarkable. Pancreas: Unremarkable. Spleen: Unremarkable. Adrenals: Unremarkable. Kidneys and ureters: Cortical cysts on the left kidney measuring 8.4 cm. Right kidney is unremarkable. Stomach and bowel: Acute diverticulitis of the sigmoid colon. There is an abscess along the inferior aspect of the sigmoid colon measuring 4. 0 x 3.0 x 3.5 cm. No pneumoperitoneum. PELVIS: Appendix: No findings to suggest acute appendicitis. Bladder: Unremarkable. Reproductive: Unremarkable as visualized. ABDOMEN and PELVIS: Intraperitoneal space: Unremarkable. No free air. No significant fluid collection. Bones/joints: No acute fracture. Soft tissues: Fat-containing left inguinal hernia. Vasculature: Unremarkable. Lymph nodes: Unremarkable. IMPRESSION: Acute diverticulitis of the sigmoid colon. There is an abscess along the inferior aspect of the sigmoid colon measuring 4.0 x 3.0 x 3.5 cm. No pneumoperitoneum. Electronically signed by: Swapnil Rangel MD 12/20/23 22:35 PM
--- NOTE | 2023-12-20 23:15 | History & Physical Report ---
Date of Service December 20, 2023 Assessment & Plan (1) Diverticulosis of colon: (2) Hyperlipidemia: (3) Anxiety disorder: (4) Acute diverticulitis: (5) Chronic rhinitis: (6) Chronic sinusitis: (7) HTN (hypertension): (8) Insomnia: (9) GERD (gastroesophageal reflux disease): Plan 78 yo female PMHx diverticulosos, HLD, neoplasm of tongue/piriform sinus, anxiety, vocal cord paralysis, HTN, GERD, insomnia admitted for abdominal pain, constipation x 1 week. #Acute Diverticulitis NPO LR @125/hr Zosyn Pain control PRN oxycodone, Tylenol Surgery consult ?IR, may need transfer #Constipation Will schedule miralax Defer enema 2/2 acute diverticulitis #Anxiety Lexapro #GERD famotidine, omeprazole #HTN Losartan #Insomnia melatonin, trazodone #HLD simvastatin FENGI: NPO Code status: Full DVT prophylaxis: Lovenox Isolation: none Disposition: med/surg History of Present Illness Primary Care Provider: Deepak Paulino, DO 78 yo female PMHx diverticulosos, HLD, neoplasm of tongue/piriform sinus, anxiety, vocal cord paralysis, HTN, GERD, insomnia admitted for abdominal pain, constipation x 1 week. Has been trying dulcolax and fruits to ease constipation without success. Has not had a bowel movement for one week. Prior to this BMs were regular, no melena, hematochezia, no UTI sxs. ED course: CT scan reveals acute diverticulitis of sigmoid colon, abscess along inferior aspect of colon, large stool burden; cyst of L kidney Mild leukocytosis Surgery consulted, will see patient in am, may require transfer for IR Allergies Allergy/AdvReac Type Severity Reaction Status Date / Time No Known Drug Allergies Allergy . Verified 12/21/23 00:01 Home Medications Medication Instructions Recorded Confirmed Type simvastatin 40 mg tablet 40 mg PO HS 05/28/19 12/20/23 History cholecalciferol (vitamin D3) 125 5,000 units PO DAILY 06/16/19 12/20/23 History mcg (5,000 unit) capsule escitalopram oxalate 20 mg tablet 20 mg PO QAM 06/16/19 12/20/23 History bisacodyl 10 mg rectal suppository 10 mg MN DAILY PRN Constipation 12/20/23 12/21/23 History (Dulcolax (bisacodyl)) famotidine 40 mg tablet 40 mg PO HS 12/20/23 12/20/23 History losartan 100 mg tablet 100 mg PO HS 12/20/23 12/20/23 History melatonin 10 mg tablet 10 mg PO HS 12/20/23 12/20/23 History omeprazole 40 mg capsule,delayed 40 mg PO HS 12/20/23 12/20/23 History release trazodone 50 mg tablet 25 mg PO HS PRN Insomnia 12/20/23 12/20/23 History Past Med/Surg History Problem List (Updated 12/21/23 @ 13:09 by Toya Yee PA-C) Hypokalemia Constipation Abscess of sigmoid colon due to diverticulitis GERD (gastroesophageal reflux disease) Insomnia HTN (hypertension) Acute diverticulitis Allergic rhinitis due to dust (Acute) Allergic rhinitis due to pollen (Acute) Anxiety disorder (Acute) Chronic rhinitis (Acute) Chronic sinusitis (Acute) Diverticulosis of colon (Acute) Erosive osteoarthritis of hands, bilateral (Acute) Hyperlipidemia (Acute) Laryngopharyngeal reflux (Acute) 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) Osteopenia (Acute) Panic disorder without agoraphobia (Acute) Syringomyelia (Acute) Vocal cord paralysis (Acute) Vocal cord paresis (Acute) Surgical History Hx of cataract surgery Family History Other Colonic polyp Coronary heart disease Hypertension Myocardial infarction Seizure Social History Smoking Status: Former smoker Second Hand Exposure: No; Do You Dip or Chew Tobacco: No; Tobacco Cessation Education Requested by Patient: No Hx Alcohol Use: Yes Alcohol type: hard liquor Hx Substance Use: No Preferred Language: Lithuanian Communication Ability: Effective Business Controller Required: No Beliefs That Will Affect Care: None marital status: Single Current Living Situation: Alone current occupational status: retired Other Information That Helps Us Care for You: No Feels Safe at Home: Yes Safety Concerns: Feels Safe At This Time Assistive Devices: None Review of Systems Review of Systems: reviewed, per HPI Physical Exam Physical Exam: Constitutional: no acute distress HEENT: NCAT, no conjunctival injection CV: extremities well-perfused, no LE edema Resp: no increased work of breathing GI: soft, distended, globally TTP more severe in LLQ, BS normoactive MSK: no gross deformities appreciated Skin: warm, dry, no rash appreciated Neuro: alert, oriented, no focal neurologic deficit appreciated Results & Data Results & Data Vital Signs (Past 12 Hours) Vital Signs Temp Pulse Pulse Resp BP BP Pulse Ox 12/20/23 22:23 75 16 139/62 98 12/20/23 19:43 81 18 104/60 97 12/20/23 16:48 36.6 C 102 H 18 119/65 96 O2 Del Method 12/20/23 22:23 Room Air 12/20/23 19:43 Room Air 12/20/23 16:48 Supervising Physician Co-Signing Physician Notes Attending addendum: I have physically seen this patient, have supervised the medical residents activities, and agree with the H&P unless as otherwise noted. Assessment and Plan: Acute sigmoid diverticulitis with abscess- Abscess 4 x 3 x 2.5 cm NPO Zosyn 4.5g IV q8h LR @ 125/hr. Zofran 4mg IV q6hr PRN Pantoprazole 40g IV daily Pain control as noted General Surgery aware and will see in the AM HTN- BP relatively low Hold Losartan Resident Activity Tracking Resident Involvement: Resident Care Provided Care Provided: Adult Hospital Medicine
[2023-12-20] MEDS: SODIUM CHLORIDE 0.9% 1,000 ML IV ONE (23:18)
[2023-12-20] MEDS: PIPERACILLIN/TAZOBACTAM 4.5 GM in DEXTROSE 5% MINI-B 100 ML IV ONE (23:20)
[2023-12-20] MEDS ORDERED: ALUMINUM/MAGNESIUM SUSP 30 ML UDC PO PRN (23:38)
[2023-12-20] MEDS ORDERED: MELATONIN 3 MG TAB PO PRN (23:38)
[2023-12-20] MEDS ORDERED: ONDANSETRON INJ 2 MG/ML 2 ML VIAL IV PRN (23:38)
[2023-12-20] MEDS ORDERED: POLYETHYLENE (MIRALAX) 17 GM PACK PO PRN (23:38)
[2023-12-21] MEDS: oxyCODONE HCL IR 5 MG TAB (IMMEDIATE RELEASE) PO PRN (00:19)
[2023-12-21] MEDS: LOSARTAN POTASSIUM 50 MG TAB PO ONE ×2 (00:52→01:25)
[2023-12-21] MEDS ORDERED: metroNIDAZOLE 500 MG/100 ML BAG IV SCH (02:00)
[2023-12-21] MEDS ORDERED: traZODone HCL 50 MG TAB PO PRN (02:06)
[2023-12-21] MEDS: LACTATED RINGER'S 1,000 ML IV SCH (02:25)
[2023-12-21] MEDS: ACETAMINOPHEN 325 MG TAB PO PRN (02:25)
[2023-12-21] MEDS: ENOXAPARIN INJ 40 MG/0.4 ML SYR SQ SCH (06:25)
[2023-12-21] MEDS: PIPERACILLIN/TAZOBACTAM 4.5 GM in DEXTROSE 5% MINI-B 100 ML IV SCH (07:07)
[2023-12-21] MEDS: ESCITALOPRAM OXALATE 20 MG TAB PO SCH (07:30)
--- OUTSIDE RECORDS SUMMARY | 2023-12-21 07:34 | External Medical Summary | Continuity of Care Document ---
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 Name Role Phone Deepak Paulino Primary Care Physician [phone] Encounter [facility] [id number] Date(s): 11/02/23 - 11/02/23 [facility] [address] [facility] [address] [address] [phone] Encounter Diagnosis Body mass index [BMI] 31.0-31.9, adult(Discharge Diagnosis) - 11/02/23 Benign essential HTN(Discharge Diagnosis) - 11/02/23 Insomnia(Discharge Diagnosis) - 11/02/23 Major depression, recurrent, chronic(Discharge Diagnosis) - 11/02/23 Discharge Disposition: Home or Self Care Attending Physician: DO Paulino Franklin J Allergies, Adverse Reactions, Alerts Substance Reaction Severity Status Allergy Not found in Search weeds Active Assessment and Plan Extracted from: Title:General Exam * Author:DO Paulino Franklin J Date:11/02/23 Impression and Plan Diagnosis Insomnia (OMN31-MG G47.00, Discharge, Medical). Major depression, recurrent, chronic (BBJ62-HD F33.9, Discharge, Medical). Insomnia (VVP48-SA G47.00, Discharge, Medical). Benign essential HTN (GZS27-BD I10, Discharge, Medical). Benign essential HTN (NLS71-YO I10, Discharge, Medical). Plan: HTN (improved/not at goal) Increase Losartan back to 100 mg BMP from May reviewed; no concern with renal function or potassium Check BMP at next visit Insomnia (improved/at goal) Continue trazodone 25 mg nightly; again discussed potential titration to 50 mg should be necessary Continue melatonin Depression (chronic/stable) Continue Lexapro Follow up as scheduled in January . Orders [facility] Pharmacy: losartan 100 mg oral tablet (Prescribe): 1 tab, PO, Daily, for 90 day, 90 tab, 3 Refill(s) losartan 50 mg oral tablet (Modify): 1 tab, PO, Daily, 30 tab, 5 Refill(s). [facility] Evaluation and Management: [id number] Outpatient Visit Est Lvl 4 (Order): 11/02/2023 11:22 EDT, FAMILY MEDICINE, Benign essential HTN | Insomnia. Immunizations Given and Recorded Vaccine Date Status Refusal Reason SARS-CoV-2 (COVID-19) mRNA BNT-162b2 vax 1 04/05/21 Recorded SARS-CoV-2 (COVID-19) mRNA BNT-162b2 vax 09/06/20 Recorded SARS-CoV-2 (COVID-19) mRNA BNT-162b2 vax 08/16/20 Recorded influenza virus vaccine, inactivated 05/13/20 Chirag rded influenza virus vaccine, inactivated 05/08/19 Give n influenza virus vaccine, inactivated 2 04/27/18 Re corded influenza virus vaccine, inactivated 03/25/16 Chirag rded influenza virus vaccine, inactivated 03/22/15 Chirag rded influenza virus vaccine, inactivated 04/06/14 Give n zoster vaccine, inactivated 01/01/20 Recorded zoster vaccine, inactivated 08/09/19 Recorded pneumococcal 13-valent vaccine 04/06/19 Recorded pneumococcal 13-valent vaccine 11/06/15 Given pneumococcal 23-valent vaccine 01/22/18 Recorded pneumococcal 23-valent vaccine 08/05/11 Recorded tetanus/diphtheria/pertuss, acel (Tdap) 12/13/12 G iven tetanus/diphtheria/pertuss, acel (Tdap) 04/11/09 R ecorded zoster vaccine live 02/09/12 Recorded 1Result Comment: [facility] 2Result Comment: [04/29/2018] Fluad [id number] Syringe Lot: [id number] IM left upper arm Fuel System Maintenance Supervisor: Lamsa. Medications ciprofloxacin 0.3% ophthalmic solution Start: 05/24/23 15:16:00 EST, See Instructions, Disp# 2.5 mL, Refills: 0, 2 drops to affected eye four times per day, Pharmacy: [facility] #[id number] Start Date: 05/24/23 Status: Ordered escitalopram 20 mg oral tablet Start: 07/16/23 12:19:00 EST, See Instructions, Disp# 30 tab, Refills: 3, take 1 tablet by mouth once daily, Pharmacy: [facility] #[id number] Start Date: 07/16/23 Status: Ordered famotidine 40 mg oral tablet Start: 08/18/23 16:13:00 EST, 1 tab, PO, qhs, Disp# 30 tab, Refills: 3, Pharmacy: [facility]/pharmacy #[id number] Start Date: 08/18/23 Status: Ordered losartan 100 mg oral tablet Start: 11/02/23 11:20:00 EDT, 1 tab, PO, Daily, Disp# 90 tab, Refills: 3, Note to Pharmacy: please cancel 50 mg refills, Pharmacy: [facility]/pharmacy #[id number] Start Date: 11/02/23 Stop Date: 10/27/24 Status: Ordered Melatonin Start: 11/26/22 10:28:00 EDT Start Date: 11/26/22 Status: Ordered omeprazole 40 mg oral delayed release capsule Start: 03/22/23 12:48:00 EDT, See Instructions, Disp# 30 cap, Refills: 11, take 1 capsule by mouth at bedtime, Pharmacy: [facility] #[id number] Start Date: 03/22/23 Status: Ordered simvastatin 40 mg oral tablet Start: 03/24/23 14:01:00 EDT, 1 tab, PO, qhs, Disp# 30 tab, Refills: 3, Pharmacy: [facility] #[id number] Start Date: 03/24/23 Stop Date: 07/22/23 Status: Ordered Sutab oral tablet Start: 01/26/23 7:24:00 EDT, See Instructions, Disp# 24 tab, Refills: 0, Follow instructions from endoscopy center. Sutab coupon BIN: [id number] PCN: EDWIGE Group: [id number] , Pharmacy:[facility] #[id number] Start Date: 01/26/23 Status: Ordered traZODone 50 mg oral tablet Start: 10/19/23 13:11:00 EDT, 0.5 tab, PO, qhs, Disp# 15 tab, Refills: 3, Pharmacy: [facility] #[id number] Start Date: 10/19/23 Status: Ordered Vitamin D3 5000 intl units oral tablet Start: 04/06/14 13:24:00, 1 tab, PO, q7days, Disp# 8 tab, Refills: 0, Pharmacy: [facility] [place] [address], 1 tab PO q7days,x56 day Start Date: 04/06/14 Stop Date: 06/01/14 Status: Ordered Mental Status 11/02/23 Barriers to Learning one year None evide nt Mandatory Health Literacy Documentation Yes Health Literacy Communication Barriers N ever Primary Language Ukrainian Problem List Condition Confirmation Course Effective Dates Status H ealth Status Informant Actinic keratosis Confirmed Active Alopecia Confirmed Active ANXIETY Confirmed Active Bacterial sinusitis Confirmed Active Diverticulosis Confirmed Active Onychodystrophy Confirmed Active Epidermal cyst Confirmed Active History of malignant neoplasm of skin Confirmed Active Hyperlipidemia Confirmed Active HTN (hypertension) Confirmed Active Insomnia Confirmed Active 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 Diagnosis Diagnosis Type Effective Dates Health Status Cl inical Service Informant Major depression, recurrent, chronic Discharge Diagnosis 11/02/23 Non-Specified Benign essential HTN Discharge Diagnosis 11/02/23 Non-Specified Body mass index [BMI] 31.0-31.9, adult Discharge Diagnosis 11/02/23 Non-Specified Insomnia Discharge Diagnosis 11/02/23 Non-Specified Procedures Procedure Date Related Diagnosis Body Site Status Colonoscopy 1, 2, 3 09/02/23 Compl eted Electrodesiccation with curettage 4 11/04/22 Completed Esophagogastroduodenoscopy 5 09/01/22 Completed Colonoscopy 6 01/01/22 Completed Electrodesiccation with curettage 11/21/20 Completed Shave biopsy of skin 11/15/20 Comp leted Shave biopsy of skin 11/15/20 Comp leted Shave biopsy and cauterizati on of skin 7 12/14/19 Completed Electrodesiccation with curettage 05/25/19 Completed Shave biopsy and cauterization of skin 05/17/19 Completed Bilateral Digital Screening Mammogram Tomosynthesis with CAD 8 11/10/18 Complet ed Electrodesiccation with curettage 9 02/03/18 Completed Shave biopsy of skin 01/19/18 Comp leted REMOVAL OF NAIL PLATE 11/11/17 Com pleted Mammogram - screening 10 11/08/17 Completed Procedure 11 08/2017 Completed DEXA - Dual energy X-ray re ton absorptiometry 12 08/17/16 Completed Endoscope 07/24/16 Completed MRI,neck, 06/22/16 Completed Colonoscopy 13 05/08/16 Completed Shave biopsy and cauterization of skin 10/21/[address] - Computerized tomography 14, 15 08/15/15 Completed Endoscopy 02/12/15 Completed cataract removals Complet ed colonoscopy 16 Completed Mammogram - screening 17 Completed mamogram 18 Completed pap smear 19 Completed Shave biopsy and cauterisati on of skin 20 Completed tooth extraction Complete d 1Repeat colonoscopy in 2 years. 2- One 7 mm polyp in the ascending colon, removed with a cold snare. Resected and retrieved. - One 2 mm polyp in the ascending colon, removed with a cold biopsy forceps. Resected and retrieved. - Diverticulosis in the left colon. - Internal hemorrhoids. - Significant colonic spasm. - Redundant colon. - The examination was otherwise normal on direct and retroflexion views. 3A) Ascending colon polyp, polypectomy Tubular adenoma B) Ascending colon polyp, polypectomy Tubular adenoma 4left dorsal wrist 5EGD irregular Z line bx 6COLO 5 polyps removed see report, left colon diverticulosis. 7with ED&C 8Impression: ACR BI RADS CATEGORY 1: Negative There is no mammographic evidence of malignancy. A 1 year screening mammogram is recommended. 9right arm 10WNL = 1 yr 11teet extraction 12AP Spine L1-L4 with a T-score of -1.6 Femur Neck Left with a T-score of -2.2 Femur Neck Right with a T-score of -2.[address] Chu, repeat in [address] 15[address] CT with contrasr 225893- benign polyp 2010-diverticulosis 17no malignancy, 1 year screening recommended. 18done at [facility] 10/27/12 19[facility]-2011 WNL 20left inner lower leg Vital Signs Most recent to oldest [Reference Range]: 1 Height 169.5 cm (11/02/23 11:03 AM) Patient Weight 89.1 kg (11/02/23 11:03 AM) Body Mass Index 31.01 kg/m2 (11/02/23 11:03 AM) Heart Rate 68 bpm (11/02/23 11:03 AM) Respiratory Rate 18 br/min (11/02/23 11:03 AM) Blood Pressure 142/82mmHg (11/02/23 11:03 AM) Cuff Pulse Pressure 60 mmHg (11/02/23 11:03 AM) Social History Social History Type Response Tobacco 1 Smoking Status Never smoked cigaret barb Sex Female 1former smoker Outpatient Note * DO Paulino Franklin J: PERFORM, SIGN, VERIFY Event Display: .Outpt Note Authored Date: Patient: PRETTY LOONEY Age: 78 years Sex: Female : 1945 Associated Diagnoses: None Author: DO Paulino Franklin J Visit Information Visit type: Scheduled follow-up. Chief Complaint 11/02/2023 11:02 EDT f/u from colonoscopy. History of Present Illness Here for a follow up of a couple of items. Had a colonoscopy; results reviewed, needs repeat in twoyears. Trazodone 25 mg is helping with insomnia. We talked about potentially going up to 50 mg but she hasnot felt the need. Blood pressure is a little bit elevated today. We had increased her losartan to 100 mg back in March or just before then; we looked at the pharmacy records together and while she got the 100 mg tabs back in March, there after it looks like the pharmacy reverted to the 50 mg tabs and that iswhat she has been on since. Review of Systems Constitutional: No fever, No chills. Eye: Negative. Ear/Nose/Mouth/Throat: Negative. Respiratory: Negative. Gastrointestinal: Negative. Neurologic: Alert and oriented X4. Health Status Allergies: Allergic Reactions (Selected) Severity Not Documented Allergy Not found in Search- Weeds.. Current medications: (Selected) Prescriptions Prescribed MetroCream 0.75% topical cream: 1 appl, topical, bid, To face twice a day for rosacea, 45 g, 3 Refill(s) Sutab oral tablet: See Instructions, Follow instructions from endoscopy center. Sutab coupon BIN: [id number] PCN: EDWIGE Group: [id number] , 24 tab, 0 Refill(s) Vitamin D3 5000 intl units oral tablet: 1 tab, PO, q7days, 8 tab ciprofloxacin 0.3% ophthalmic solution: See Instructions, 2 drops to affected eye four times per day, 2.5 mL, 0 Refill(s) escitalopram 20 mg oral tablet: See Instructions, take 1 tablet by mouth once daily, 30 tab, 3 Refill(s) famotidine 40 mg oral tablet: 1 tab, PO, qhs, 30 tab, 3 Refill(s) losartan 50 mg oral tablet: 1 tab, PO, Daily, 30 tab, 5 Refill(s) omeprazole 40 mg oral delayed release capsule: See Instructions, take 1 capsule by mouth at bedtime, 30 cap, 11 Refill(s) simvastatin 40 mg oral tablet: 1 tab, PO, qhs, for 30 day, 30 tab, 3 Refill(s) traZODone 50 mg oral tablet: 0.5 tab, PO, qhs, 15 tab, 3 Refill(s) Documented Medications Documented Melatonin: . Problem list: Medical Diverticulosis / ICD-9-CM 562.10 / Confirmed Actinic keratosis / SNOMED CT 1023930599 / Confirmed Senile hyperkeratosis / SNOMED CT 5065963209 / Confirmed History of malignant neoplasm of skin / SNOMED CT 1258666364 / Confirmed ANXIETY / ICD-9-CM 293.84 / Confirmed Hyperlipidemia / ICD-9-CM 272.4 / Confirmed Insomnia / ICD-9-CM 780.52 / Confirmed Onychodystrophy / SNOMED CT 881665159 / Confirmed Sinus pressure / SNOMED CT 414847108 / Confirmed Maxillary sinusitis / SNOMED CT 984364935 / Confirmed SCC (squamous cell carcinoma) / SNOMED CT 399996688 / Confirmed Bacterial sinusitis / SNOMED CT 3169431518 / Confirmed Epidermal cyst / SNOMED CT 1312502104 / Confirmed 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 / SNOMED CT 7657215553 / Confirmed Major depression, recurrent, chronic / SNOMED CT 484636372 / Confirmed Seborrheic keratoses / SNOMED CT 1398191811 / Confirmed Lichenoid keratosis / SNOMED CT 5552339987 / Confirmed Alopecia / SNOMED CT 01941278 / Confirmed Rosacea / SNOMED CT 0256853106 / Confirmed Nail deformity / SNOMED CT 961109245 / Confirmed HTN (hypertension) / SNOMED CT 6574939072 / Confirmed Syringomyelia / SNOMED CT 111971641 / Confirmed All Problems Diverticulosis / ICD-9-CM 562.10 / Confirmed Actinic keratosis / SNOMED CT 5443407991 / Confirmed Senile hyperkeratosis / SNOMED CT 7762570279 / Confirmed History of malignant neoplasm of skin / SNOMED CT 4903116623 / Confirmed ANXIETY / ICD-9-CM 293.84 / Confirmed Hyperlipidemia / ICD-9-CM 272.4 / Confirmed Insomnia / ICD-9-CM 780.52 / Confirmed Onychodystrophy / SNOMED CT 014812486 / Confirmed Sinus pressure / SNOMED CT 313287711 / Confirmed Maxillary sinusitis / SNOMED CT 424182532 / Confirmed SCC (squamous cell carcinoma) / SNOMED CT 560420223 / Confirmed Bacterial sinusitis / SNOMED CT 4119761523 / Confirmed Epidermal cyst / SNOMED CT 2085958744 / Confirmed 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 Histories Family History: Heart Failure Father Diverticulitis Mother Hyperlipidemia.. Father Brother Skin cancer Father Sister Arthritis Mother Alzheimer disease Mother Melanoma Brother Osteoporosis Mother Heart attack Father High Blood Pressure Mother . Social History Social & Psychosocial Habits Alcohol Comment: described social drinker - 12/13/2012 13:20 - AUDELIA Avery, Ragini Amezcua Employment/School 12/13/2012 Status: Retired Exercise Comment: no regular exercise - 12/13/2012 13:27 - AUDELIA Avery Tammy L Tobacco Comment: former smoker - 12/13/2012 13:20 - AUDELIA Avery Tammy L . Physical Examination Vital Signs 11/02/2023 11:03 EDT Heart Rate 68 bpm Respiratory Rate 18 br/min Systolic Blood Pressure 142 mmHg Diastolic Blood Pressure 82 mmHg Cuff Pulse Pressure 60 mmHg SpO2 98 % Measurements from flowsheet : Measurements 11/02/2023 11:04 EDT Osteoporosis Screening Tool 2.22 11/02/2023 11:03 EDT Height 169.5 cm Height Method Standing Patient Weight 89.1 kg Weight 89.100 kg Weight Method Standing Scale Body Mass Index 31.01 kg/m2 Body Surface Area 2.05 m2 [place] Body Weight 61 kg Height/Weight Refused Height/Weight Taken General: Alert and oriented, No acute distress. Neck: Supple, Non-tender. Respiratory: Lungs are clear to auscultation, Respirations are non-labored, Breath sounds are equal. Cardiovascular: Normal rate, Regular rhythm. Integumentary: Warm, Dry, [place]. Neurologic: Alert, Oriented, Normal sensory. Cognition and Speech: Oriented, Speech clear and coherent. Psychiatric: Cooperative, Appropriate mood & affect. Health Maintenance Health Maintenance Pending (in the next year) OverDue Medicare Annual Wellness Visit due 12/22/19 and every 1 year Adult Influenza Vaccine due 01/08/23 and every 1 year Due Adult COVID-19 Vaccination due 11/02/23 Unknown Frequency Adult Social Determinants of Health Screening due 11/02/23 Unknown Frequency Adult Tdap/Td Vaccine due 11/02/23 Unknown Frequency Falls Plan of Care due 11/02/23 Unknown Frequency Hepatitis C Screening due 11/02/23 One-time only Satisfied (in the past 1 year) Satisfied Body Mass Index on 11/02/23. Satisfied by AUDELIA Henderson Kyla PHQ-9 After Positive PHQ-2 on 11/26/22. Satisfied by MAXWELL Cheng Paula Review / Management Results review: Lab results 05/19/2023 13:41 EST Na 140 mmol/L K 4.2 mmol/L Cl- 105 mmol/L HCO3 26 mmol/L Anion Gap 9 mmol/L BUN 10 mg/dL Cret 0.87 mg/dL eGFR CKD-EPI 68 mL/min/1.73 m2 Glu 94 mg/dL Ca 9.6 mg/dL TSH 1.56 uIU/mL . Impression and Plan Diagnosis Insomnia (JJM66-KV G47.00, Discharge, Medical). Major depression, recurrent, chronic (SQI68-CD F33.9, Discharge, Medical). Insomnia (AGQ16-CF G47.00, Discharge, Medical). Benign essential HTN (QNR86-AT I10, Discharge, Medical). Benign essential HTN (PQP32-CB I10, Discharge, Medical). Plan: HTN (improved/not at goal) Increase Losartan back to 100 mg BMP from May reviewed; no concern with renal function or potassium Check BMP at next visit Insomnia (improved/at goal) Continue trazodone 25 mg nightly; again discussed potential titration to 50 mg should be necessary Continue melatonin Depression (chronic/stable) Continue Lexapro Follow up as scheduled in January . Orders [facility] Pharmacy: losartan 100 mg oral tablet (Prescribe): 1 tab, PO, Daily, for 90 day, 90 tab, 3 Refill(s) losartan 50 mg oral tablet (Modify): 1 tab, PO, Daily, 30 tab, 5 Refill(s). [facility] Evaluation and Management: [id number] Outpatient Visit Est Lvl 4 (Order): 11/02/2023 11:22 EDT, FAMILY MEDICINE, Benign essential HTN | Insomnia. Electronic Signature on File Electronically Reviewed/Signed by: Deepak Paulino DO Author Signature Dt/Tm:11/02/2023 11:33 AM Department of Family Medicine [facility] Patient Care team information Care Team Personnel Name: DO Paulino Franklin J Position: Physician - Family Med Member Role: Primary Care Provider Address: Address: [address] [facility] [address] [place] [address] Care Team Related Persons Name: ALEXANDER EVANGELISTA Address: home No Address Provided Name: RYLEE HUNTER Address: home [place], [place] [id number] Name: RYLEE HUNTER Address: [place] [id number]"
--- OUTSIDE RECORDS SUMMARY | 2023-12-21 07:34 | External Medical Summary | Continuity of Care Document ---
Author Name Unknown Organization [facility] [address] [facility] [address] [id number] Care Team Providers Care Social Service Agency Director Name Role Phone Deepak Paulino Primary Care Physician [phone] Encounter [facility] [id number] Date(s): 06/30/23 - 06/30/23 [facility] [address] [facility] [address] [phone] [place] Encounter Diagnosis Hx of skin malignancy(Discharge Diagnosis) - 06/30/23 Actinic keratosis(Discharge Diagnosis) - 06/30/23 Seborrheic keratoses(Discharge Diagnosis) - 06/30/23 Nail deformity(Discharge Diagnosis) - 06/30/23 Discharge Disposition: Home or Self Care Attending Physician: MD Vlaerio Sara B Allergies, Adverse Reactions, Alerts Substance Reaction Severity Status Allergy Not found in Search weeds Active Assessment and Plan Extracted from: Title:Office Visit Note Author:MD Teodoro, Heriberto Littlejohn Date:06/30/23 1.Hx of skin malignancy Warning signs of skin cancer were reviewed. Sun protection reviewed. Follow-up in 6 -9 months, sooner for any changing or growing lesions or acute concerns. I also recommended monthly self skin exams 2. Actinic keratoses x 2. Lesions treated with liquid nitrogen. Patient aware of possibility of infection, hypo or hyperpigmentation or scarring and did elect to proceed. They should inform me of any problems or recurrences post treatment. Care sheet given. 3. Seborrheic keratoses. Chronic, within normal limits 4. Nail deformity. Has improved a lot since she is cut down on the picking[place] Immunizations Given and Recorded Vaccine Date Status [...] zoster vaccine live 02/09/12 Recorded 1Result Comment: [facility] 2Result Comment: [04/29/2018] Fluad [id number] Syringe Lot: [id number] IM left upper arm Regional Clinical Director: [facility]. Medications ciprofloxacin 0.3% ophthalmic solution Start: 05/24/23 15:16:00 EST, See Instructions, Disp# 2.5 mL, Refills: 0, 2 drops to affected eye four times per day, Pharmacy: [facility] #[id number] Start Date: 05/24/23 Status: Ordered escitalopram 20 mg oral tablet Start: 03/16/23 14:04:00 EDT, See Instructions, Disp# 30 tab, Refills: 3, take 1 tablet by mouth once daily, Pharmacy: [facility] #[id number] Start Date: 03/16/23 Status: Ordered famotidine 40 mg oral tablet Start: 04/12/23 12:47:00 EDT, 1 tab, PO, qhs, Disp# 30 tab, Refills: 3, Pharmacy: [facility] #[id number] Start Date: 04/12/23 Status: Ordered losartan 100 mg oral tablet Start: 03/24/23 14:01:00 EDT, 1 tab, PO, Daily, Disp# 30 tab, Refills: 3, Note to Pharmacy: Note dose change, Pharmacy: [facility] #[id number] Start Date: 03/24/23 Stop Date: 07/22/23 Status: Ordered Melatonin Start: 11/26/22 10:28:00 EDT Start Date: 11/26/22 Status: Ordered MetroCream 0.75% topical cream Start: 06/26/21 14:43:00 EST, 1 appl, topical, bid, Disp# 45 g, Refills: 3, To face twice a day forrosacea, Pharmacy: [facility] Start Date: 06/26/21 Status: Ordered omeprazole 40 mg oral delayed release capsule Start: 03/22/23 12:48:00 EDT, See Instructions, Disp# 30 cap, Refills: 11, take 1 capsule by mouth at bedtime, Pharmacy: [facility] [id number] Start Date: 03/22/23 Status: Ordered simvastatin 40 mg oral tablet Start: 03/24/23 14:01:00 EDT, 1 tab, PO, qhs, Disp# 30 tab, Refills: 3, Pharmacy: [facility] #[id number] Start Date: 03/24/23 Stop Date: 07/22/23 Status: Ordered Sutab oral tablet Start: 01/26/23 7:24:00 EDT, See Instructions, Disp# 24 tab, Refills: 0, Follow instructions from endoscopy center. Sutab coupon BIN: [id number] PCN: EDWIGE Group: [id number] , Pharmacy:[facility] #[id number] Start Date: 01/26/23 Status: Ordered traZODone 50 mg oral tablet Start: 06/14/23 16:27:00 EST, 0.5 tab, PO, qhs, Disp# 15 tab, Refills: 3, Pharmacy: [facility] #[id number] Start Date: 06/14/23 Status: Ordered Vitamin D3 5000 intl units oral tablet Start: 04/06/14 13:24:00, 1 tab, PO, q7days, Disp# 8 tab, Refills: 0, Pharmacy: [id number] [place] [address], 1 tab PO q7days,x56 day Start Date: 04/06/14 Stop Date: 11/21/14 Status: Ordered Mental Status 06/30/23 Barriers to Learning one year None evide nt Problem List Condition Confirmation Course Effective Dates [...] Diagnosis Diagnosis Type Effective Dates Health Status Clinical Service Informant Nail deformity Discharge Diagnosis 06/30/23 Hx of skin malignancy Discharge Diagnosis 06/30/23 Actinic keratosis Discharge Diagnosis 06/30/23 Seborrheic keratoses Discharge Diagnosis 06/30/23 Procedures Procedure Date Related Diagnosis Body Site Status Electrodesiccation with curettage 1 11/04/22 Completed Esophagogastroduodenoscopy 2 09/01/22 Completed Colonoscopy 3 01/01/22 Completed Electrodesiccation with curettage 11/21/20 Completed Shave biopsy of skin 11/15/20 Comp leted Shave biopsy of skin 11/15/20 Comp leted Shave biopsy and cauterizati on of skin 4 12/14/19 Completed Electrodesiccation with curettage 05/25/19 Completed Shave biopsy and cauterization of skin 05/17/19 Completed Bilateral Digital Screening Mammogram Tomosynthesis with CAD 5 11/10/18 Complet ed Electrodesiccation with curettage 6 02/03/18 Completed Shave biopsy of skin 01/19/18 Comp leted REMOVAL OF NAIL PLATE 11/11/17 Com pleted Mammogram - screening 7 11/08/17 C ompleted Procedure 8 08/2017 Completed DEXA - Dual energy X-ray re ton absorptiometry 9 08/17/16 Completed Endoscope 07/24/16 Completed MRI,neck, 06/22/16 Completed Colonoscopy 10 05/08/16 Completed Shave biopsy and cauterization of skin 10/21/[address] - Computerized tomography 11, 12 08/15/15 Completed Endoscopy 02/12/15 Completed cataract removals Complet ed colonoscopy 13 Completed Mammogram - screening 14 Completed mamogram 15 Completed pap smear 16 Completed Shave biopsy and cauterisati on of skin 17 Completed tooth extraction Complete d 1left dorsal wrist 2EGD irregular Z line bx 3COLO 5 polyps removed see report, left colon diverticulosis. 4with ED&C 5Impression: ACR BI RADS CATEGORY 1: Negative There is no mammographic evidence of malignancy. A 1 year screening mammogram is recommended. 6right arm 7WNL = 1 yr 8teet extraction 9AP Spine L1-L4 with a T-score of -1.6 Femur Neck Left with a T-score of -2.2 Femur Neck Right with a T-score of -2.[address] Chu, repeat in [address] 12[address]st CT with contrasr [id number]- benign polyp 2010-diverticulosis 14no malignancy, 1 year screening recommended. 15done at [facility] 10/27/12 [id number]-2011 WNL 17left inner lower leg Social History Social History Type Response Tobacco 1 Smoking Status Never smoked cigaret barb Sex Female 1former smoker Dermatology Outpatient Note * MD Teodoro, Kayla Littlejohn: PERFORM Event Display: Dermatology Outpt Note Authored Date: Chief Complaint 6 month f/u, few spots on the chest of concern History of Present Illness Pt follows up for skin check. Had a squamous cell in situ on the wrist treated with electrodesiccation and curettage by Yandy kaur in spring 2019 Has had right thumbnial removed years ago- was fine-- she continually picks at thisthumb Patient has a past personal history of skin cancer: hx BCC chest, hx DN left lower leg 2015, KAright upper arm tx ED&C summer 2017. SCCIS left inner thigh tx ED&C 2018,comes on site to treated with E D&Con the right anterior shoulder by Yandy kaur in spring 2019. Family history:fam hx melanoma - brother Patient reports history of blistering sunburns / tanning beds. Works with [employer], retired now but still helping [1] few spots on the chest of concern Physical Exam Gen: Well appearing patient, no acute distress. Alert and oriented x3. Good mood. Skin examination completed of face, eyelids, scalp, hair, lips, ears, neck, chest, back, abdomen,upper and lower extremities bilaterally including hands, feet, fingers and toes, fingernails and toenails, pt declined buttocks and groin. Pt declined a brownell operator. Patient has 1 light actinic keratosis leftbreasts and right nasal tip. No evidence of recurrent skin cancer. No neck supraclavicular posterior occipital lymphadenopathy. Scattered seborrheic keratoses. Nail deformityhasimproved a lot on the right thumbnail. She has fake nails on her fingernails otherwise. Assessment/Plan 1.Hx of skin malignancy Warning signs of skin cancer were reviewed. Sun protection reviewed. Follow-up in 6 -9 months,sooner for any changing or growing lesions or acute concerns. I also recommended monthly self skin exams 2. Actinic keratoses x 2. Lesions treated with liquid nitrogen. Patient aware of possibility of infection, hypo or hyperpigmentation or scarring and did elect to proceed. They should inform me of any problems or recurrences post treatment. Care sheet given. 3. Seborrheic keratoses. Chronic, within normal limits 4. Nail deformity. Has improved a lot since she is cut down on the picking[place] 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 Syringomyelia Historical Changing skin lesion Dermatitis Neoplasm of uncertain behavior of skin Procedure/Surgical History Electrodesiccation with curettage (11/04/2022)Esophagogastroduodenoscopy (09/01/2022)Colonoscopy (01/01/2022)Electrodesiccation with curettage (11/21/2020)Shave biopsy of skin (11/15/2020)Shave biopsy of skin (11/15/2020)Shave biopsy and cauterization of skin (12/14/2019)Elec trodesiccation with curettage (05/25/2019)Shave biopsy and cauterization of skin (05/17/2019)Bilateral Digital Screening Mammogram Tomosynthesis with CAD (11/10/2018)Electrodesiccation with curettage (02/03/2018)Shave biopsy of skin (01/19/2018)REMOVAL OF NAIL PLATE (11/11/2017)Mammogram - screening (11/08/2017)Procedure (08/2017)DEXA - Dual energy X-ray photon absorptiometry (08/17/2016)Endoscope (07/24/2016)MRI,neck, (06/22/2016)Colonoscopy (05/08/2016)Shave biopsy and cauterization of skin (10/21/2015)CT - Computerized tomography (08/15/2015)Endoscopy (02/12/2015)mamogramcataract removalspap smearcolonoscopytooth extractionShavebiopsy and cauterisation of skinMammogram - screening Medications cholecalciferol(Vitamin D3 5000 intl units oral tablet), 5000 Int_Unit= 1 tab, PO, q7days ciprofloxacin ophthalmic(ciprofloxacin 0.3% ophthalmic solution), See Instructions escitalopram(escitalopram 20 mg oral tablet), See Instructions famotidine(famotidine 40 mg oral tablet), 1 tab, PO, qhs losartan(losartan 100 mg oral tablet), 100 mg= 1 tab, PO, Daily, 3 refills magnesium sulfate/potass Cl/sodium sulf(Sutab oral tablet), See Instructions melatonin(Melatonin) metroNIDAZOLE topical(MetroCream 0.75% topical cream), 1 appl, topical, bid, 3 refills omeprazole(omeprazole 40 mg oral delayed release capsule), See Instructions simvastatin(simvastatin 40 mg oral tablet), 40 mg= 1 tab, PO, qhs, 3 refills traZODone(traZODone 50 mg oral tablet), 0.5 tab, PO, qhs Allergies Allergy Not found in Searchweeds Social History Smoking Status Never smoked cigarettes Alcohol - Comments: described social drinker Employment/School Status:Retired Exercise - Comments: no regular exercise Tobacco - Comments: former smoker Family History Alzheimer disease: Mother. Arthritis: Mother. Diverticulitis: Mother. Heart Failure: Father. Heart attack: Father. High Blood Pressure: Mother. Hyperlipidemia..: Father and Brother. Melanoma: Brother. Osteoporosis: Mother. Skin cancer: Father and Sister. Health Status Family Member(s) Immunizations Vaccine Date Status SARS-CoV-2 (COVID-19) mRNA BNT-162b2 vax 04/05/2021 Recorded Comments : [facility] SARS-CoV-2 (COVID-19) mRNA BNT-162b2 vax 09/06/2020 Recorded SARS-CoV-2 (COVID-19) mRNA BNT-162b2 vax 08/16/2020 Recorded influenza virus vaccine, inactivated 05/13/2020 Recorded zoster vaccine, inactivated 01/01/2020 Recorded zoster vaccine, inactivated 08/09/2019 Recorded influenza virus vaccine, inactivated 05/08/2019 Given pneumococcal 13-valent vaccine 04/06/2019 Recorded influenza virus vaccine, inactivated 04/27/2018 Recorded Comments : [04/29/2018] Fluad [id number] Syringe Lot: [id number] IM left upper arm Regional Clinical Director: [facility]. pneumococcal 23-valent vaccine 01/22/2018 Recorded influenza virus vaccine, inactivated 03/25/2016 Recorded pneumococcal 13-valent vaccine 11/06/2015 Given influenza virus vaccine, inactivated 03/22/2015 Recorded influenza virus vaccine, inactivated 04/06/2014 Given tetanus/diphtheria/pertuss, acel (Tdap) 12/13/2012 Given zoster vaccine live 02/09/2012 Recorded pneumococcal 23-valent vaccine 08/05/2011 Recorded tetanus/diphtheria/pertuss, acel (Tdap) 04/11/2009 Recorded Recommendations Health Maintenance Pending(in the next year) OverDue Medicare Annual Wellness Visit due12/22/19and every 1year Adult Influenza Vaccine due01/09/23and every 1year Due Adult COVID-19 Vaccination due06/30/23Unknown Frequency Adult Social Determinants of Health Screening due06/30/23Unknown Frequency Adult Tdap/Td Vaccine due06/30/23Unknown Frequency Falls Plan of Care due06/30/23Unknown Frequency Hepatitis C Screening due06/30/23One-time only Due In Future Body Mass Index not due until05/19/24and every Satisfied(in the past 1 year) Satisfied Body Mass Index on05/19/23.Satisfied by AUDELIA Amaral Emma Lipid Screening on08/27/22.Satisfied by [employer], [id number] PHQ-9 After Positive PHQ-2 on11/26/22.Satisfied by MAXWELL Cheng Paula [1]Office Visit Note; MD Teodoro, Kayla Littlejohn 12/24/2022 15:12 EDT Electronic Signature on File Electronically Reviewed/Signed by: Kayla Valerio MD Author Signature Dt/Tm:06/30/2023 10:05 AM Department of Dermatology [facility] Patient Care team information Care Team Personnel Name: DO Paulino Franklin J Position: Physician - Family Med Member Role: Primary Care Provider Address: Address: [address] [facility] [address] [place] [address] Care Team Related Persons Name: ALEXANDER EVANGELISTA Address: home No Address Provided Name: RYLEE HUNTER Address: home [place] [id number] Name: RYLEE HUNTER Address: [place] [id number]
--- NOTE | 2023-12-21 10:01 | Surgery Consultation ---
Date of Consultation December 21, 2023 Assessment & Plan (1) Acute diverticulitis: (2) Abscess of sigmoid colon due to diverticulitis: Plan 78 year-old female with 1 week history of constipation presented to ED with abdominal pain. CT scan of abdomen and pelvis showing acute sigmoid div erticulitis with abscess, no perforation. Reviewed with our radiology department (JASPER MALAVE) who states abscess more intramural and not amenable to drainage at this time. No leukocytosis and afebrile. Plan: Continue conservative management with IV abx (likely need at least 3 days given abscess), pain management as needed, antiemetics as needed, IV fluids. Recommend bowel rest for today given abscess. Possibly clear liquids starting tomorrow may need to start bowel regimen tomorrow pending pain improvement encouraged oob to chair and ambulation as much as possible continue medical management Discussed with Dr. Manuel, see addendum for further recommendations/plan. Supervising Physician Co-Signing Physician Notes I have seen and examined the patient personally and agree with the above assessment and plan. In brief, this 78-year-old woman with a 1 week history of constipation and abdominal pain. She has tenderness to the left lower quadrant. CT scan demonstrates acute sigmoid diverticulitis with what appears to be an intramural abscess approximately 3 cm in diameter. We will plan for IV antibiotics, pain management, IV fluids. Will keep her on bowel rest for today. Will continue to follow along. History of Present Illness Reason for Consultation: Diverticulitis with abscess Requesting Physician: Rickie Duong DO Attending Physician: Terence Fowler History of Present Illness Nga is a 78 year old female with history of GERD, insomnia, HTN, hyperlipidemia, neoplasm of tongue, osteopenia, anxiety, chronic sinusitis, and diverticulosis who presented to ED with constipation for 1 week and abdominal pain. She states she was trying dulcolax and fruits to help with constipation however unable to have bowel movement. States she had a colonoscopy in April which showed a polyp but otherwise unremarkable. No history of prior diverticulitis. No blood in stools. ER work-up included labs which showed no leukocytosis. CT scan of abdomen and pelvis showing sigmoid diverticulitis with abscess measuring 4 cm in largest dimension. She currently is rating pain 6/10. Abdomen feels bloated but less than before. No nausea or vomiting. Passing little gas and small pasty bowel movement. Allergies Allergy/AdvReac Type Severity Reaction Status Date / Time No Known Drug Allergies Allergy . Verified 12/21/23 00:01 Home Medications Medication Instructions Recorded Confirmed Type simvastatin 40 mg tablet 40 mg PO HS 05/28/19 12/20/23 History cholecalciferol (vitamin D3) 125 5,000 units PO DAILY 06/16/19 12/20/23 History mcg (5,000 unit) capsule escitalopram oxalate 20 mg tablet 20 mg PO QAM 06/16/19 12/20/23 History bisacodyl 10 mg rectal suppository 10 mg MO DAILY PRN Constipation 12/20/23 12/21/23 History (Dulcolax (bisacodyl)) famotidine 40 mg tablet 40 mg PO HS 12/20/23 12/20/23 History losartan 100 mg tablet 100 mg PO HS 12/20/23 12/20/23 History melatonin 10 mg tablet 10 mg PO HS 12/20/23 12/20/23 History omeprazole 40 mg capsule,delayed 40 mg PO HS 12/20/23 12/20/23 History release trazodone 50 mg tablet 25 mg PO HS PRN Insomnia 12/20/23 12/20/23 History Patient History Surgical History Hx of cataract surgery Family History Other Colonic polyp Coronary heart disease Hypertension Myocardial infarction Seizure Social History Smoking Status: Former smoker Second Hand Exposure: No; Do You Dip or Chew Tobacco: No; Tobacco Cessation Education Requested by Patient: No Hx Alcohol Use: Yes Alcohol type: hard liquor Hx Substance Use: No Preferred Language: French Communication Ability: Effective Security Expert Required: No Beliefs That Will Affect Care: None marital status: Single Current Living Situation: Alone current occupational status: retired Other Information That Helps Us Care for You: No Feels Safe at Home: Yes Safety Concerns: Feels Safe At This Time Assistive Devices: None Review of Systems Review of Systems: All systems reviewed & are unremarkable except as noted in HPI & below Physical Exam Constitutional: WD/WN, vitals as above + obese, cooperative and comfortable; no acute distress and not ill appearing Respiratory: normal respiratory effort, lungs clear to auscultation Cardiovascular: RRR, no murmur, no edema Gastrointestinal (Abdomen): Inspection/Auscultation: abdomen normal to inspection and + hypoactive bowel sounds; abdomen not distended and + abnormal bowel sounds Percussion/Palpation: + abdomen tender (LLQ on deep palpation) and abdomen soft; no guarding, abdomen not rigid and abdomen not firm Skin: no rashes, warm and dry Psychiatric: Orientation: alert and oriented x 3 Results & Data Vital Signs (Past 12 Hours) Vital Signs Temp Pulse Resp BP Pulse Ox O2 Del Method 12/21/23 07:01 36.6 C 71 16 129/74 97 Room Air 12/21/23 01:30 37.7 C H 93 H 18 172/76 H 95 Room Air 12/21/23 01:24 76 20 97/66 L 95 Room Air 12/21/23 00:28 77 16 171/80 H 99 Room Air 12/20/23 22:23 75 16 139/62 98 Room Air Laboratory Results 12/20/23 12/20/23 12/20/23 Range/Units 23:15 19:50 17:12 WBC 11.74 H (4.8-10.8) K/ul RBC 4.03 L (4.20-5.40) M/uL Hgb 12.2 (12.0-16.0) g/dl Hct 36.5 L (37.0-47.0) % MCV 90.6 (80.0-100.0) fL MCH 30.3 (25.0-34.0) pg MCHC 33.4 (32.0-36.0) g/dL RDW Std Deviation 45.1 (36.4-46.3) fL RDW Coeff of [place] 13.7 (11.5-14.5) % Plt Count 360 (130-400) K/uL MPV 9.5 (9.4-12.4) fL Immature Gran % (Auto) 0.3 % Neut % (Auto) 79.4 % Lymph % (Auto) 13.3 % [place] % (Auto) 6.6 % Eos % (Auto) 0.1 % Baso % (Auto) 0.3 % Neut # (Auto) 9.32 H (1.40-6.50) K/uL Lymph # (Auto) 1.56 (1.20-3.40) K/uL [place] # (Auto) 0.78 H (0.11-0.59) K/uL Eos # (Auto) 0.01 (0.00-0.50) K/uL Baso # (Auto) 0.03 (0.00-0.20) K/uL Immature Gran # (Auto) 0.04 (0.01-0.20) K/uL Sodium 134 L (136-145) mmol/L Potassium 3.3 L (3.5-5.1) mmol/L Chloride 100 (98-107) mmol/L Carbon Dioxide 23 (21-32) mmol/L Anion Gap 11 (3-11) BUN 12 (6-23) mg/dl Creatinine 0.88 (0.6-1.2) mg/dl Est Cr Clr Drug Dosing 55.8 ml/min Est GFR ( Amer) 72.9 ml/min Est GFR (Non-Af Amer) 62.9 ml/min BUN/Creatinine Ratio 13.6 (10-20) Glucose 109 H (70-99(Fasting)) mg/dl Lactate 0.8 (0.4-2.0) mmol/L Calcium 8.9 (8.6-10.3) mg/dl Total Bilirubin 0.7 (0.2-1.0) mg/dl AST 22 (13-39) U/L ALT 12 (7-52) U/L Alkaline Phosphatase 85 (34-104) U/L Total Protein 7.5 (6.0-8.3) gm/dl Albumin 3.6 (3.4-5.0) gm/dl Globulin 3.9 (2.5-4.0) gm/dl Albumin/Globulin Ratio 0.9 (0.9-2) Lipase 10 L (11-82) U/L Urine Color Dark Yellow Urine Appearance Clear (Clear) Urine pH 6.0 (4.5-7.5) Ur Specific [place] > 1.045 H (1.000-1.030) Urine Protein 1+ H (Negative) Urine Glucose (UA) Negative (Negative) Urine Ketones 1+ H (Negative) Urine Blood Trace H (Negative) Urine Nitrite Negative (Negative) Urine Bilirubin 1+ H (Negative) Urine Urobilinogen Positive H (Negative) Ur Leukocyte Esterase Trace H (Negative) Urine WBC (Auto) 0-5 (0-5) /hpf Urine RBC (Auto) 3-5 H (0-2) /hpf U Hyaline Cast (Auto) 6-10 H (0-2) /lpf U Epithel Cells (Auto) 6-10 H (0-2) /hpf Urine Bacteria (Auto) None Seen (None Seen) Diagnostic Findings Exam(s): CT ABDOMEN + PELVIS With Contrast IV Amt: 93 cc opti 320 EXAM: CT Abdomen and Pelvis With Intravenous Contrast CLINICAL HISTORY: Reason for exam: Abd pain. TECHNIQUE: Axial computed tomography images of the abdomen and pelvis with intravenous contrast. CTDI is 26.11 mGy and DLP is 1221.89 mGy-cm. Automated exposure control was utilized for the study. A dose lowering technique was utilized adhering to the principles of ALARA. CONTRAST: Patient received 93 cc opti 320 of IV contrast COMPARISON: No relevant prior studies available. FINDINGS: ABDOMEN: Liver: Unremarkable. Gallbladder and bile ducts: Unremarkable. Pancreas: Unremarkable. Spleen: Unremarkable. Adrenals: Unremarkable. Kidneys and ureters: Cortical cysts on the left kidney measuring 8.4 cm. Right kidney is unremarkable. Stomach and bowel: Acute diverticulitis of the sigmoid colon. There is an abscess along the inferior aspect of the sigmoid colon measuring 4. 0 x 3.0 x 3.5 cm. No pneumoperitoneum. PELVIS: Appendix: No findings to suggest acute appendicitis. Bladder: Unremarkable. Reproductive: Unremarkable as visualized. ABDOMEN and PELVIS: Intraperitoneal space: Unremarkable. No free air. No significant fluid collection. Bones/joints: No acute fracture. Soft tissues: Fat-containing left inguinal hernia. Vasculature: Unremarkable. Lymph nodes: Unremarkable. IMPRESSION: Acute diverticulitis of the sigmoid colon. There is an abscess along the inferior aspect of the sigmoid colon measuring 4.0 x 3.0 x 3.5 cm[address]. [address] images personally reviewed. Discussed CT with Aaron Rodriguez PA-c interventional radiology who reviewed with Dr. Choudhary who believes abscess is more intramural and not amenable to IR drainage at this time.
[2023-12-21 10:46] LABS: Basophils # (auto) 0.03 K/uL (0.00-0.20); Basophils % (auto) 0.3 %; Eosinophils # (auto) 0.08 K/uL (0.00-0.50); Eosinophils % (auto) 0.8 %; Hematocrit (blood only) 32.6 % (37.0-47.0); Hemoglobin 10.9 g/dl (12.0-16.0); Immature Granulocytes # (auto) 0.04 K/uL (0.01-0.20); Immature Granulocytes % (auto) 0.4 %; Lymphocytes # (auto) 1.77 K/uL (1.20-3.40); Lymphocytes % (auto) 17.7 %; Mean Corpuscular Hemoglobin 30.2 pg (25.0-34.0); Mean Corpuscular Hgb Conc 33.4 g/dL (32.0-36.0); Mean Corpuscular Volume 90.3 fL (80.0-100.0); Mean Platelet Volume 9.4 fL (9.4-12.4); Neutrophils # (auto) 7.28 K/uL (1.40-6.50); Neutrophils % (auto) 72.8 %; Platelet Count 298 K/uL (130-400); RDW Coefficient of Variation 13.6 % (11.5-14.5); Red Blood Count 3.61 M/uL (4.20-5.40)
[2023-12-21 10:58] LABS: BUN Creatinine Ratio 15.2 (10-20); C Reactive Protein 15.22 mg/dl (0-0.5); Calcium 8.5 mg/dl (8.6-10.3); Est GFR (African American) 98.1 ml/min; Est GFR (Non-African American) 84.6 ml/min
--- NOTE | 2023-12-21 13:15 | Hospitalist Progress Note ---
Date of Service December 21, 2023 Assessment & Plan (1) Abscess of sigmoid colon due to diverticulitis: Plan: -Patient presented to ED on 12/20/2023 with complaints of abdominal pain and constipation. -reviewed CTAP from 12/19 revealing 4x3x3.5cm abscess in inferior portion of sigmoid colon along with acute diverticulitis -reviewed labs from 12/19 and 12/20. WBC normalized 12/20 to 10. CRP elevated at 15.22. Procalcitonin normal at 0.08. -reviewed surgery's recommendations -conservative management with IV Zosyn - at least 3 days worth given abscess -pain management as needed with Acetaminophen 650mg PO Q4H prn and oxycodone 5mg PO Q4H prn - antiemetics as needed with Ondansetron 4mg IV Q6H prn -Continue on IV fluids with LR 125 mls/hr IV Q8H -Continue NPO status today with hopes of starting clear liquid diet tomorrow -ambulate as much as possible - patient is independent. (2) Constipation: Plan: -Patient reports no bowel movements x 7 days now. She does have history of constipation but not this severe. -She has tried Dulcolax at home last few days with no relief. -If pain improvement tomorrow, will start bowel regimen consistent of 17gm Miralax BID. (3) Hypokalemia: Plan: - patient reports no history of hypokalemia -uopn arrival to ED potassium decreased at 3.3. Recheck 12/20 was 3.0 -patient replenished with potassium 20meq TID 12/20. -will plan to recheck BMP and CBC in AM. Plan For chronic conditions: -Continue Lexapro for anxiety -Continue famotidine and omeprazole for GERD -Continue Losartan for hypertension -Continue melatonin and trazodone for insomnia -Continue simvastatin for HLD Diet: NPO Code status: full DVT prophylaxis: Lovenox Isolation: none Disposition: med/surg Admission and Anticipated Discharge Date Admission Date: December 20, 2023 Subjective Patient seen and examined this afternoon at bedside. Patient reports that she is folding machine tender in her abdominal area. She has not defecated in about 7 days now. She has been using ducolax at home with no relief. She does report history of constipation. She has been experiencing abdominal pain for 5 days. She denies any localized region of pain but is generalized throughout her abdomen. She denies any nausea or vomiting. She denies chest pain or shortness of breath. She reports she had a colonoscopy last June. She has been n.p.o. since admitted to the hospital. Discussed with the patient the plan from her consultation with the surgeon. She ambulates at home by herself and also uses a treadmill for exercise occasionally. Physical Exam 2 Constitutional: WD/WN, vitals as above Eyes: PERRL, conjunctivae normal, anicteric sclerae ENMT: external ear and nose normal, oropharynx normal Respiratory: normal respiratory effort, lungs clear to auscultation Cardiovascular: RRR, no murmur, no edema Gastrointestinal (Abdomen): decreased bowel sounds. generalized abdominal tenderness Skin: no rashes, warm and dry Neurologic: PERRL, EOMI, accommodation nl, no face palsy, no dysarthria Psychiatric: A+Ox3, euthymic affect Results & Data Results & Data Vital Signs (Past 12 Hours) Vital Signs Temp Pulse Resp BP Pulse Ox O2 Del Method 12/21/23 07:01 36.6 C 71 16 129/74 97 Room Air 12/21/23 01:30 37.7 C H 93 H 18 172/76 H 95 Room Air 12/21/23 01:24 76 20 97/66 L 95 Room Air Laboratory Results 12/21/23 10:21 12/21/23 10:21 Diagnostic Findings Abdomen/Pelvis CT 12/20/23 16:58 Exam(s): CT ABDOMEN + PELVIS With Contrast IV Amt: 93 cc opti 320 CLINICAL HISTORY: Reason for exam: Abd pain. IMPRESSION: Acute diverticulitis of the sigmoid colon. There is an abscess along the inferior aspect of the sigmoid colon measuring 4.0 x 3.0 x 3.5 cm. No pneumoperitoneum. Electronically signed by: Swapnil Rangel MD 12/20/23 22:35 PM PG Care Time/CCT Total # of Minutes Spent Total Time Spent with Patient: Total time spent is greater than 50% in coordination of care (as documented) at patient's floor/unit and/or counseling patient: Coding Level of Care Code 74395 SUB INP/OBS CARE 3/50MIN Diagnoses Abscess of sigmoid colon due to diverticulitis K57.20 Constipation, unspecified constipation type K59.00 Constipation type: unspecified constipation type Hypokalemia E87.6 (2) Constipation Constipation type: unspecified constipation type Qualified Code(s): K59.00 - Constipation, unspecified
[2023-12-21] MEDS: MAGNESIUM HYDROXIDE SUSP 30 ML UDC PO PRN (13:37)
[2023-12-21] MEDS: POTASSIUM CHLORIDE CRTAB 20 MEQ TABCR PO SCH (14:24)
--- NOTE | 2023-12-21 19:26 | Billing Data ---
Date of Service December 21, 2023 Coding Level of Care Code 39741 INT INP/OBS CARE
[2023-12-21] MEDS: SIMVASTATIN 40 MG TAB PO SCH (21:16)
[2023-12-21] MEDS: LOSARTAN POTASSIUM 50 MG TAB PO SCH (21:16)
[2023-12-21] MEDS: FAMOTIDINE 40 MG TABLET PO SCH (21:17)
[2023-12-21] MEDS: PANTOprazole 40 MG TAB PO SCH (21:17)
[2023-12-21] MEDS: MELATONIN 3 MG TAB PO SCH (21:17)
[2023-12-22 07:28] LABS: Basophils # (auto) 0.04 K/uL (0.00-0.20); Basophils % (auto) 0.4 %; Eosinophils # (auto) 0.11 K/uL (0.00-0.50); Eosinophils % (auto) 1.2 %; Hemoglobin 10.8 g/dl (12.0-16.0); Immature Granulocytes # (auto) 0.04 K/uL (0.01-0.20); Immature Granulocytes % (auto) 0.4 %; Lymphocytes # (auto) 1.85 K/uL (1.20-3.40); Lymphocytes % (auto) 20.6 %; Mean Corpuscular Hemoglobin 29.3 pg (25.0-34.0); Mean Corpuscular Hgb Conc 31.8 g/dL (32.0-36.0); Mean Corpuscular Volume 92.4 fL (80.0-100.0); Mean Platelet Volume 9.5 fL (9.4-12.4); Monocytes # (auto) 0.55 K/uL (0.11-0.59); Monocytes % (auto) 6.1 %; Neutrophils # (auto) 6.41 K/uL (1.40-6.50); Neutrophils % (auto) 71.3 %; Platelet Count 321 K/uL (130-400); RDW Coefficient of Variation 13.7 % (11.5-14.5); RDW Standard Deviation 46.9 fL (36.4-46.3); Red Blood Count 3.68 M/uL (4.20-5.40)
[2023-12-22 07:40] LABS: BUN Creatinine Ratio 11.6 (10-20); C Reactive Protein 18.09 mg/dl (0-0.5); Calcium 8.7 mg/dl (8.6-10.3); Creatinine Clr Calc Pharmacy 71.8 ml/min; Est GFR (African American) 96.6 ml/min; Est GFR (Non-African American) 83.4 ml/min; Potassium 3.5 mmol/L (3.5-5.1)
--- NOTE | 2023-12-22 09:29 | Surgery Progress Note ---
Date of Service December 22, 2023 Assessment & Plan (1) Acute diverticulitis: (2) Abscess of sigmoid colon due to diverticulitis: Plan 78 year-old female with 1 week history of constipation presented to ED with abdominal pain. CT scan of abdomen and pelvis showing acute sigmoid di verticulitis with abscess, no perforation. Reviewed with our radiology department (JASPER MALAVE) who states abscess more intramural and not amenable to drainage at this time. No leukocytosis and afebrile. Plan: Continue conservative management with IV abx (likely need at least 3 days given abscess), pain management as needed, antiemetics as needed, IV fluids. start clears, advised to go slowly BID Miralax encouraged oob to chair and ambulation as much as possible continue medical management Admission and Anticipated Discharge Date Admission Date: December 20, 2023 Supervising Physician Co-Signing Physician Notes I have seen and examined the patient personally and agree with the above assessment and plan. In brief, she has diverticulitis with intramural abscess. She feels better today. On exam, less tenderness to palpation left lower quadrant. Will continue conservative management IV antibiotics, pain management, IV fluids. We have started clears and she will remain on clears for now. Will continue to follow. Subjective feeling better pain better today, took Tylenol, rating pain 3/10 no n,v passing gas and liquid bowel movements Physical Exam Constitutional: WD/WN, vitals as above cooperative and comfortable; no acute distress and not ill appearing Respiratory: normal respiratory effort; no respiratory distress Gastrointestinal (Abdomen): Inspection/Auscultation: abdomen normal to inspection; abdomen not distended Percussion/Palpation: + abdomen tender (left mid to lower quadrant) and abdomen soft; no guarding, abdomen not rigid and abdomen not firm Skin: no rashes, warm and dry Psychiatric: Orientation: alert and oriented x 3 Results & Data Vital Signs (Past 12 Hours) Vital Signs Temp Pulse Resp BP Pulse Ox O2 Del Method 12/22/23 06:30 36.9 C 64 16 111/57 L 96 Room Air Laboratory Results 12/22/23 12/21/23 Range/Units 06:42 10:21 WBC 9.00 10.00 (4.8-10.8) K/ul RBC 3.68 L 3.61 L (4.20-5.40) M/uL Hgb 10.8 L 10.9 L (12.0-16.0) g/dl Hct 34.0 L 32.6 L (37.0-47.0) % MCV 92.4 90.3 (80.0-100.0) fL MCH 29.3 30.2 (25.0-34.0) pg MCHC 31.8 L 33.4 (32.0-36.0) g/dL RDW Std Deviation 46.9 H 45.0 (36.4-46.3) fL RDW Coeff of [place] 13.7 13.6 (11.5-14.5) % Plt Count 321 298 (130-400) K/uL MPV 9.5 9.4 (9.4-12.4) fL Immature Gran % (Auto) 0.4 0.4 % Neut % (Auto) 71.3 72.8 % Lymph % (Auto) 20.6 17.7 % [place] % (Auto) 6.1 8.0 % Eos % (Auto) 1.2 0.8 % Baso % (Auto) 0.4 0.3 % Neut # (Auto) 6.41 7.28 H (1.40-6.50) K/uL Lymph # (Auto) 1.85 1.77 (1.20-3.40) K/uL [place] # (Auto) 0.55 0.80 H (0.11-0.59) K/uL Eos # (Auto) 0.11 0.08 (0.00-0.50) K/uL Baso # (Auto) 0.04 0.03 (0.00-0.20) K/uL Immature Gran # (Auto) 0.04 0.04 (0.01-0.20) K/uL Sodium 138 136 (136-145) mmol/L Potassium 3.5 3.0 L (3.5-5.1) mmol/L Chloride 104 103 (98-107) mmol/L Carbon Dioxide 26 23 (21-32) mmol/L Anion Gap 8 10 (3-11) BUN 8 10 (6-23) mg/dl Creatinine 0.69 0.66 (0.6-1.2) mg/dl Est Cr Clr Drug Dosing 71.8 75.0 ml/min Est GFR ( Amer) 96.6 98.1 ml/min Est GFR (Non-Af Amer) 83.4 84.6 ml/min BUN/Creatinine Ratio 11.6 15.2 (10-20) Glucose 74 95 (70-99(Fasting)) mg/dl Calcium 8.7 8.5 L (8.6-10.3) mg/dl C-Reactive Protein 18.09 H 15.22 H (0-0.5) mg/dl Procalcitonin 0.08 (0-0.5) ng/ml
[2023-12-22] MEDS: POLYETHYLENE (MIRALAX) 17 GM PACK PO SCH (10:35)
--- NOTE | 2023-12-22 11:08 | Hospitalist Progress Note ---
Date of Service December 22, 2023 Assessment & Plan (1) Abscess of sigmoid colon due to diverticulitis: Plan: -Patient presented to ED on 12/20/2023 with complaints of abdominal pain and constipation. -CTAP from 12/19 revealing 4x3x3.5cm abscess in inferior portion of sigmoid colon along with acute diverticulitis -Procalcitonin WNL at 0.08 on 12/20 -Reviewed labs from 12/21: CRP increased to 18.09. WBC WNL at 9. Hgb stable at 10.8. BMP WNL. -patient advanced to clear liquid diet. -decreased IVF to 80ml/hr -conservative management with IV Zosyn - at least 3 days worth given abscess -pain management as needed with Acetaminophen 650mg PO Q4H prn and oxycodone 5mg PO Q4H prn - antiemetics as needed with Ondansetron 4mg IV Q6H prn -ambulate as much as possible - patient is independent. -will plan to recheck CRP, CBC, BMP in AM. (2) Constipation: Plan: -Patient reports no bowel movements x 8 days now. She does have history of constipation but not this severe. -She has tried Dulcolax at home last few days with no relief. -Miralax 17gm BID was started 12/21. -if no bowel movement by 12/22, could consider abdominal x-ray. (3) Hypokalemia: Plan: - patient reports no history of hypokalemia -uopn arrival to ED potassium decreased at 3.3. Recheck 12/20 was 3.0 -patient replenished with potassium 20meq TID 12/20. -reviewed potassium 12/21 which is WNL at 3.5. - will continue to monitor and correct as needed. Plan For chronic conditions: -Continue Lexapro for anxiety -Continue famotidine and omeprazole for GERD -Continue Losartan for hypertension -Continue melatonin and trazodone for insomnia -Continue simvastatin for HLD Diet: NPO Code status: full DVT prophylaxis: Lovenox Isolation: none Disposition: med/surg Admission and Anticipated Discharge Date Admission Date: December 20, 2023 Subjective Patient seen and examined this morning at bedside. She reports improvement in her symptoms today. She denied any abdominal pain at time of encounter. She was drinking her Miralax and tolerating it well. She reports no BM yet. She did pass two episodes of flatulence yesterday but none today. She denies nausea or vomiting. She had a dose of tylenol this morning when she rated her abdominal pain 3/10 and has been fine since. Physical Exam 2 Constitutional: WD/WN, vitals as above Eyes: PERRL, conjunctivae normal, anicteric sclerae ENMT: external ear and nose normal, oropharynx normal Respiratory: normal respiratory effort, lungs clear to auscultation Cardiovascular: RRR, no murmur, no edema Gastrointestinal (Abdomen): generalized abdominal tenderness. decreased bowel sounds. Skin: no rashes, warm and dry Neurologic: PERRL, EOMI, accommodation nl, no face palsy, no dysarthria Psychiatric: A+Ox3, euthymic affect Results & Data Results & Data Vital Signs (Past 12 Hours) Vital Signs Temp Pulse Resp BP Pulse Ox O2 Del Method 12/22/23 06:30 36.9 C 64 16 111/57 L 96 Room Air Laboratory Results 12/22/23 06:42 12/22/23 06:42 PG Care Time/CCT Total # of Minutes Spent Total Time Spent with Patient: Total time spent is greater than 50% in coordination of care (as documented) at patient's floor/unit and/or counseling patient: Coding Level of Care Code 30422 SUB INP/OBS CARE 2MIN Diagnoses Abscess of sigmoid colon due to diverticulitis K57.20 Constipation, unspecified constipation type K59.00 Constipation type: unspecified constipation type Hypokalemia E87.6 (2) Constipation Constipation type: unspecified constipation type Qualified Code(s): K59.00 - Constipation, unspecified
[2023-12-22] MEDS: LACTATED RINGER'S 1,000 ML IV SCH (13:38)
[2023-12-23 09:51] LABS: Hematocrit (blood only) 34.1 % (37.0-47.0); Hemoglobin 11.1 g/dl (12.0-16.0); Mean Corpuscular Hemoglobin 29.4 pg (25.0-34.0); Mean Corpuscular Hgb Conc 32.6 g/dL (32.0-36.0); Mean Corpuscular Volume 90.5 fL (80.0-100.0); Mean Platelet Volume 9.9 fL (9.4-12.4); Platelet Count 357 K/uL (130-400); RDW Coefficient of Variation 13.8 % (11.5-14.5); RDW Standard Deviation 45.2 fL (36.4-46.3); Red Blood Count 3.77 M/uL (4.20-5.40); White Blood Count 6.65 K/ul (4.8-10.8)
[2023-12-23 10:06] LABS: Calcium 8.9 mg/dl (8.6-10.3); Creatinine Clr Calc Pharmacy 73.9 ml/min; Est GFR (African American) 97.6 ml/min; Est GFR (Non-African American) 84.2 ml/min; Potassium 3.5 mmol/L (3.5-5.1)
[2023-12-23 10:08] LABS: C Reactive Protein 12.27 mg/dl (0-0.5)
--- NOTE | 2023-12-23 11:35 | XRay Report ---
KUB HISTORY: Acute generalized abdominal pain constipation. no BM x 9 days COMPARISON: CT 12/20/2023 FINDINGS: Nonobstructive bowel gas pattern. Air-filled loops of large and small bowel are noted. Smal l right pleural effusion. No renal calculi. No ureteral calculi. No pneumoperitoneum or pneumatosis. No fracture. IMPRESSION: Nonobstructive bowel gas pattern ACT 112: Negative or not required by law. The above report was generated using voice recognition software. It may contain grammatical, syntax o r spelling errors. Electronically signed by: Rickey Choudhary M.D. 12/23/2023 11:33 AM
--- NOTE | 2023-12-23 11:39 | Surgery Progress Note ---
Date of Service December 23, 2023 Assessment & Plan (1) Acute diverticulitis: (2) Abscess of sigmoid colon due to diverticulitis: Plan 78 year-old female with 1 week history of constipation presented to ED with abdominal pain. CT scan of abdomen and pelvis showing acute sigmoid di verticulitis with abscess, no perforation. Reviewed with our radiology department (JASPER MALAVE) who states abscess more intramural and not amenable to drainage at this time. No leukocytosis and afebrile. Plan: Continue conservative management with IV abx (likely need at least 3 days given abscess), pain management as needed, antiemetics as needed, IV fluids. can advance to full liquids BID Miralax encouraged oob to chair and ambulation as much as possible continue medical management Admission and Anticipated Discharge Date Admission Date: December 20, 2023 Supervising Physician Co-Signing Physician Notes I seen and examined the patient personally and agree with the above assessment and plan. She States that she feels about the same as yesterday. minimal pain or tenderness. We will advance to full liquid diet. continue IV ant ibiotics for now. Subjective feeling bloated today, not worse than prior however tolerating clear liquids without abdominal pain or bloating passing gas and still have some grainy sand like bowel movements abdominal pain minimal today no n/v Physical Exam Constitutional: WD/WN, vitals as above cooperative and comfortable; no acute distress and not ill appearing Gastrointestinal (Abdomen): Inspection/Auscultation: abdomen normal to inspection and + hypoactive bowel sounds; abdomen not distended Percussion/Palpation: + abdomen tender (LLQ on deep palpation) and abdomen soft; no guarding, abdomen not rigid and abdomen not firm Skin: no rashes, warm and dry Psychiatric: Orientation: alert and oriented x 3 Results & Data Vital Signs (Past 12 Hours) Vital Signs Temp Pulse Resp BP Pulse Ox O2 Del Method 12/23/23 09:31 36.7 C 12/23/23 08:00 37.6 C H 68 18 156/82 H 97 Room Air Laboratory Results 12/23/23 Range/Units 09:25 WBC 6.65 (4.8-10.8) K/ul RBC 3.77 L (4.20-5.40) M/uL Hgb 11.1 L (12.0-16.0) g/dl Hct 34.1 L (37.0-47.0) % MCV 90.5 (80.0-100.0) fL MCH 29.4 (25.0-34.0) pg MCHC 32.6 (32.0-36.0) g/dL RDW Std Deviation 45.2 (36.4-46.3) fL RDW Coeff of Mar[place] 13.8 (11.5-14.5) % Plt Count 357 (130-400) K/uL MPV 9.9 (9.4-12.4) fL Sodium 138 (136-145) mmol/L Potassium 3.5 (3.5-5.1) mmol/L Chloride 105 (98-107) mmol/L Carbon Dioxide 22 (21-32) mmol/L Anion Gap 11 (3-11) BUN 6 (6-23) mg/dl Creatinine 0.67 (0.6-1.2) mg/dl Est Cr Clr Drug Dosing 73.9 ml/min Est GFR ( Amer) 97.6 ml/min Est GFR (Non-Af Amer) 84.2 ml/min BUN/Creatinine Ratio 9.0 L (10-20) Glucose 92 (70-99(Fasting)) mg/dl Calcium 8.9 (8.6-10.3) mg/dl C-Reactive Protein 12.27 H (0-0.5) mg/dl
--- NOTE | 2023-12-23 12:33 | Hospitalist Progress Note ---
Date of Service December 23, 2023 Assessment & Plan (1) Abscess of sigmoid colon due to diverticulitis: Plan: -Patient presented to ED on 12/20/2023 with complaints of abdominal pain and constipation. -CTAP from 12/19 revealing 4x3x3.5cm abscess in inferior portion of sigmoid colon along with acute diverticulitis -Procalcitonin WNL at 0.08 on 12/20 -Reviewed labs from 12/22: CRP decreased to 12.27, hgb stable at 11.1 and WBC WNL at 6.65. -patient advanced to full liquid diet. -decreased IVF to 80ml/hr. When patient tolerates oral intake, will discontinue fluids. -conservative management with IV Zosyn - at least 3 days worth given abscess -pain management as needed with Acetaminophen 650mg PO Q4H prn and oxycodone 5mg PO Q4H prn - antiemetics as needed with Ondansetron 4mg IV Q6H prn -ambulate as much as possible - patient is independent. -will plan to recheck CRP, CBC, BMP in AM. (2) Constipation: Plan: -Patient reports no bowel movements x 9 days now. She does have history of constipation but not this severe. -She is passing gas and bowel sounds auscultated on physical examination. -reviewed abdominal XR from 12/22 which revealed nonobstructive bowel gas pattern. -Miralax 17gm BID was started 12/21. Continue. (3) Hypokalemia: Plan: - patient reports no history of hypokalemia -uopn arrival to ED potassium decreased at 3.3. Recheck 12/20 was 3.0 -patient replenished with potassium 20meq TID 12/20. -reviewed potassium 12/22 which is WNL at 3.5. - will continue to monitor and correct as needed. Plan For chronic conditions: -Continue Lexapro for anxiety -Continue famotidine and omeprazole for GERD -Continue Losartan for hypertension -Continue melatonin and trazodone for insomnia -Continue simvastatin for HLD Diet: full liquid diet Code status: full DVT prophylaxis: Lovenox Isolation: none Disposition: med/surg Admission and Anticipated Discharge Date Admission Date: December 20, 2023 Subjective Patient seen and examined this morning at bedside. Patient reports no bowel movement yet. She has been passing gas. She was compliant with intake of Miralax yesterday and this morning. She reports minimal abdominal pain and denies the use of any analgesics. She does not like selection that her clear liquid diet has and is hopeful to advance to full liquid diet. Patient does report she has been ambulating well. Physical Exam Constitutional: WD/WN, vitals as above Eyes: PERRL, conjunctivae normal, anicteric sclerae ENMT: external ear and nose normal, oropharynx normal Respiratory: normal respiratory effort, lungs clear to auscultation Cardiovascular: RRR, no murmur, no edema Gastrointestinal (Abdomen): normal bowel sounds, soft, nontender, no hepatosplenomegaly Neurologic: PERRL, EOMI, accommodation nl, no face palsy, no dysarthria Psychiatric: A+Ox3, euthymic affect Results & Data Results & Data Vital Signs (Past 12 Hours) Vital Signs Temp Pulse Resp BP Pulse Ox O2 Del Method 12/23/23 09:31 36.7 C 12/23/23 08:00 37.6 C H 68 18 156/82 H 97 Room Air PG Care Time/CCT Total # of Minutes Spent Total Time Spent with Patient: Total time spent is greater than 50% in coordination of care (as documented) at patient's floor/unit and/or counseling patient: Coding Level of Care Code 02703 SUB INP/OBS CARE 235MIN Diagnoses Abscess of sigmoid colon due to diverticulitis K57.20 Constipation, unspecified constipation type K59.00 Constipation type: unspecified constipation type Hypokalemia E87.6 (2) Constipation Constipation type: unspecified constipation type Qualified Code(s): K59.00 - Constipation, unspecified
[2023-12-23] MEDS: DOCUSATE SODIUM/SENNA 50/8.6MG TAB PO SCH (15:27)
[2023-12-24 07:56] LABS: Hematocrit (blood only) 30.3 % (37.0-47.0); Hemoglobin 9.8 g/dl (12.0-16.0); Mean Corpuscular Hemoglobin 29.6 pg (25.0-34.0); Mean Corpuscular Hgb Conc 32.3 g/dL (32.0-36.0); Mean Corpuscular Volume 91.5 fL (80.0-100.0); Mean Platelet Volume 9.8 fL (9.4-12.4); Platelet Count 318 K/uL (130-400); RDW Coefficient of Variation 13.9 % (11.5-14.5); RDW Standard Deviation 47.1 fL (36.4-46.3); Red Blood Count 3.31 M/uL (4.20-5.40); White Blood Count 5.25 K/ul (4.8-10.8)
[2023-12-24 08:21] LABS: BUN Creatinine Ratio 7.4 (10-20); C Reactive Protein 6.43 mg/dl (0-0.5); Calcium 8.4 mg/dl (8.6-10.3); Creatinine Clr Calc Pharmacy 72.8 ml/min; Est GFR (African American) 97.1 ml/min; Est GFR (Non-African American) 83.8 ml/min; Potassium 3.5 mmol/L (3.5-5.1)
--- NOTE | 2023-12-24 09:08 | Surgery Progress Note ---
Date of Service December 24, 2023 Assessment & Plan (1) Acute diverticulitis: (2) Abscess of sigmoid colon due to diverticulitis: Plan 78 year-old female with 1 week history of constipation presented to ED with abdominal pain. CT scan of abdomen and pelvis showing acute sigmoid di verticulitis with abscess, no perforation. Reviewed with our radiology department (JASPER MALAVE) who states abscess more intramural and not amenable to drainage at this time. No leukocytosis and afebrile. 12/24/23 afebrile, vss minimal LLQ abdominal pain + bowel function Plan: Okay from surgical standpoint for low fiber diet for lunch and if tolerates can discharge home continue IV abx, transition to oral abx on discharge for another 11 days for total 14 day course of abx continue medical management Admission and Anticipated Discharge Date Admission Date: December 20, 2023 Supervising Physician Co-Signing Physician Notes I seen and examined the patient personally and agree with the above assessment and plan. She is feeling much better. No pain or tenderness. We will advance her diet to low fiber. She may be discharged home on antibiotics today. Subjective no abodminal pain no increase in bloating tolerating full liquids without nausea, vomiting or abdominal pain no fever or chills still having grainy loose bms with flatus everytime she urinates, no real formed normal bowel movement Physical Exam Constitutional: WD/WN, vitals as above cooperative and comfortable; no acute distress and not ill appearing Respiratory: normal respiratory effort; no respiratory distress, no labored breathing and no retractions Gastrointestinal (Abdomen): Inspection/Auscultation: abdomen normal to inspection; abdomen not distended Percussion/Palpation: + abdomen tender (LLQ on deep palpation) and abdomen soft; no guarding, abdomen not rigid and abdomen not firm Skin: no rashes, warm and dry Psychiatric: A+Ox3, euthymic affect Results & Data Vital Signs (Past 12 Hours) Vital Signs Temp Pulse Resp BP Pulse Ox O2 Del Method 12/24/23 07:18 36.7 C 63 16 126/62 94 Room Air Laboratory Results 12/24/23 12/23/23 Range/Units 07:36 09:25 WBC 5.25 6.65 (4.8-10.8) K/ul RBC 3.31 L 3.77 L (4.20-5.40) M/uL Hgb 9.8 L 11.1 L (12.0-16.0) g/dl Hct 30.3 L 34.1 L (37.0-47.0) % MCV 91.5 90.5 (80.0-100.0) fL MCH 29.6 29.4 (25.0-34.0) pg MCHC 32.3 32.6 (32.0-36.0) g/dL RDW Std Deviation 47.1 H 45.2 (36.4-46.3) fL RDW Coeff of Mar[place] 13.9 13.8 (11.5-14.5) % Plt Count 318 357 (130-400) K/uL MPV 9.8 9.9 (9.4-12.4) fL Sodium 140 138 (136-145) mmol/L Potassium 3.5 3.5 (3.5-5.1) mmol/L Chloride 107 105 (98-107) mmol/L Carbon Dioxide 27 22 (21-32) mmol/L Anion Gap 6 11 (3-11) BUN 5 L 6 (6-23) mg/dl Creatinine 0.68 0.67 (0.6-1.2) mg/dl Est Cr Clr Drug Dosing 72.8 73.9 ml/min Est GFR ( Amer) 97.1 97.6 ml/min Est GFR (Non-Af Amer) 83.8 84.2 ml/min BUN/Creatinine Ratio 7.4 L 9.0 L (10-20) Glucose 103 H 92 (70-99(Fasting)) mg/dl Calcium 8.4 L 8.9 (8.6-10.3) mg/dl C-Reactive Protein 6.43 H 12.27 H (0-0.5) mg/dl
--- NOTE | 2023-12-24 13:18 | Discharge Summary ---
Date of Service December 24, 2023 Admission HPI Per Admitting Provider 78 yo female PMHx diverticulosos, HLD, neoplasm of tongue/piriform sinus, anxiety, vocal cord paralysis, HTN, GERD, insomnia admitted for abdominal pain, constipation x 1 week. Has been trying dulcolax and fruits to ease constipation without success. Has not had a bowel movement for one week. Prior to this BMs were regular, no melena, hematochezia, no UTI sxs. ED course: CT scan reveals acute diverticulitis of sigmoid colon, abscess along inferior aspect of colon, large stool burden; cyst of L kidney Mild leukocytosis Surgery consulted, will see patient in am, may require transfer for IR Principal Diagnosis Diverticulitis with abcess Discharge Exam Constitutional WD/WN, vitals as above Eyes PERRL, conjunctivae normal, anicteric sclerae ENMT external ear and nose normal, oropharynx normal Respiratory normal respiratory effort, lungs clear to auscultation Cardiovascular RRR, no murmur, no edema Gastrointestinal (Abdomen) normal bowel sounds, soft, nontender, no hepatosplenomegaly Skin no rashes, warm and dry Neurologic PERRL, EOMI, accommodation nl, no face palsy, no dysarthria Psychiatric A+Ox3, euthymic affect Discharge Data Allergies Allergy/AdvReac Type Severity Reaction Status Date / Time No Known Drug Allergies Allergy . Verified 12/21/23 00:01 Consultations 12/20/23 22:54 ED Decision to Admit Stat 12/20/23 23:38 Consult General Surgery Routine Ordered Studies Abdomen/Pelvis CT 12/20/23 16:58 EXAM: CT Abdomen and Pelvis With Intravenous Contrast CLINICAL HISTORY: Reason for exam: Abd pain. IMPRESSION: Acute diverticulitis of the sigmoid colon. There is an abscess along the inferior aspect of the sigmoid colon measuring 4.0 x 3.0 x 3.5 cm. No pneumoperitoneum. KUB X-Ray 12/23/23 10:37 HISTORY: Acute generalized abdominal pain constipation. no BM x 9 days IMPRESSION: Nonobstructive bowel gas pattern Electronically signed by: Rickey Choudhary M.D. 12/23/2023 11:33 AM 12/24/23 07:36 12/24/23 07:36 Vital Signs Temp 36.7 C 12/24/23 07:18 Pulse 63 12/24/23 07:18 Resp 16 12/24/23 07:18 BP 126/62 12/24/23 07:18 Pulse Ox 94 12/24/23 07:18 O2 Del Method Room Air 12/24/23 07:18 Hospital Course (1) Abscess of sigmoid colon due to diverticulitis: -Patient presented to ED on 12/20/2023 with complaints of abdominal pain and constipation. She then underwent a CTAP w/ contrast that revealed a 4x3x3.5cm abscess in inferior portion of sigmoid colon and acute diverticulitis. Surgery team was consulted and followed along during her hospital stay. They had recommend conservative management and at least 3 days of IV antibiotics which she completed. Her procalcitonin was WNL of 0.08 on 12/20. Her original CRP on 12/21 was elevated at 18.09 and has downtrended to 6.43 on 12/23. She is tolerating a low fiber diet on day of discharge and encouraged to continue this diet over the next 4-6 weeks. Patient was given IV Zosyn for treatment while inpatient and discharged to Augmentin 875mg three times daily x 10 days outpatient. She can use Tylenol 650mg PO q4h as needed for pain. She remained active during her hospital stay by walking the halls. She is to repeat a CBC in one week to ensure stable WBC and Hgb. Hgb did drop to 9.8 on 12/23 but is likely related to IVF. She denied any overt signs of bleeding. (2) Constipation: -Prior to patient presenting to hospital she had been unable to have a BM for about 1 week. She reported history of constipation but not typically this severe. She was given Miralax 17g BID and was added an additional Senna tablet as well. We recommended against suppository/enema usage given abscess and this was communicated with the patient to avoid this. Upon discharge she can continue Miralax BID until she feels she is adequately defecating again. Following that, she can resume prn doses of Miralax. She did have an XR on 12/22 that was negative for obstruction. (3) Hypokalemia: Upon arrival to the ED she was found to have a decreased potassium of 3.3. Recheck on 12/20 was still low at 3. She was replenished with potassium 20meq three times on 6/11 and potassium had stabilized. On 12/23 potassium stable at 3.5. Patient is to repeat BMP in 1 week to reassess levels. Plan For chronic conditions she was continued on lexapro for anxiety, famotidine/omeprazole for GERD, losartan for HTN, melatonin/trazodone for insomnia, and simvastatin for HLD. Total Time Total Time Spent Total Time Spent (In Minutes): 35 Discharge Plan Discharge Items Patient Disposition: Home - Self-Care Reason For Visit: DIVERTICULITIS, CONSTIPATION Discharge Diagnosis: Diverticulitis with abscess and constipation. Activity: Resume your previous activity Non-emergency contact: Primary Care Provider Call non-emergency contact if: you have any medication questions, your symptoms worsen, your pain is not controlled and you have a fever Follow-up/Referrals: Deepak Paulino DO [Primary Care Provider] - 12/30/23 12:45 pm (Dr. Duong for Dr. Paulino) Diet: Low Fiber Ambulatory Orders: Basic Metabolic Panel (Routine) Timeframe: 20231231 Location: Determined by Patient Ordered By: Toya Yee Complete Blood Count no Diff (Routine) Timeframe: 20231231 Location: Determined by Patient Ordered By: Toya Yee Add Attending Provider Instructions: Ms. Fernandez, You were hospitalized for diverticulitis with abscess formation along with constipation. You had followed with general surgery who recommended supportive care and at least 3 days of IV antibiotics. You have received 4 days of IV antibiotics. You will be discharged home on oral antibiotic therapy. You were also found to have low potassium levels which were corrected and have been stable since. Please see recommendations below. -Please take Augmentin three times daily with food for 10 days. 1st dose will be tonight 12/24/2023. -Please continue using Miralax 17gm twice daily to help faciliate bowel movements. If your bowel movements return to normal, you may use Miralax as needed. -Please avoid using suppositories or enemas for constipation for the next 4-6 weeks. -Please follow a low fiber diet for about 4-6 weeks. Following this time frame, you may resume a high fiber diet. -Please follow up with your PCP to discuss needs of repeating another colonoscopy. For your chronic conditions: -Continue Lexapro for anxiety -Continue famotidine and omeprazole for acid reflux -Continue losartan for your high blood pressure -Continue melatonin and trazodone for insomnia -Continue simvastatin for high cholesterol -Please obtain lab work to recheck your potassium levels and your blood counts in 1 week. -Please follow up within 1-2 weeks of discharge with your PCP. -If you develop any worsening symptoms including pain, worsened constipation, fever, chills, or bloody bowel movements please report back to the emergency room. Sincerely, Toya Yee PA-C Pending Studies at Discharge: No Stand-Alone Forms: My [facility], Smoking Cessation Medications and DC Order Prescriptions: New amoxicillin-pot clavulanate 875-125 mg tablet 1 tab PO TID Qty: 30 0RF Rx Instructions: TID x 10 days. Continued simvastatin 40 mg tablet 40 mg PO HS escitalopram oxalate 20 mg tablet 20 mg PO QAM cholecalciferol (vitamin D3) 5,000 unit capsule 5,000 units PO DAILY omeprazole 40 mg capsule,delayed release(DR/EC) 40 mg PO HS trazodone 50 mg tablet 25 mg PO HS PRN (Reason: Insomnia) melatonin 10 mg Tablet 10 mg PO HS losartan 100 mg tablet 100 mg PO HS famotidine 40 mg tablet 40 mg PO HS Discontinued bisacodyl [Dulcolax (bisacodyl)] 10 mg Suppository 10 mg HI DAILY PRN (Reason: Constipation) Discharge Orders: Discharge Order (Routine); Ordered 12/24/23 Ordered By: Toya Garcia/Other Patient Handouts: Preventing Deep Vein Thrombosis Admission Data Admit Date/Time: 12/20/23 23:38 Attending Provider: Terence Fowler Admit Provider: Rickie Duong Primary Care Provider: Deepak Paulino Other Providers: Meliton Alvarez; Ezio Manuel. Other Interventions: Discharge Summary Assessment (RN) Last Done: 12/24/23 13:22 Supervising Physician Co-Signing Physician Notes During face to face encounter, I obtained a brief physical examination, discussed hospital stay with patient and discharge instructions with patient. I discussed discharge plan of care with ALICJA Yee. I reviewed above note and agree with it except for the following: Patient admitted with diverticulitis with abscess. Patient improved with antibiotics and prachi be discharged on augmentin. Patient will continue on a low fiber diet and followup with Dr. Paulino Coding Level of Care Code 17031 INP/OBS DISCH >30 MIN Diagnoses Abscess of sigmoid colon due to diverticulitis K57.20 Constipation, unspecified constipation type K59.00 Constipation type: unspecified constipation type Hypokalemia E87.6
== END 2023-12-24 14:28 | disposition home or self-care (01) | DRG 392 ==
LOC: ED 16:47 → 3W 23:38 → SUATTDRO 23:38 → 3W 12-21 01:30